=== PATIENT | female | born 1950 | race Caucasian/White ===

== ENCOUNTER 2018-10-03 18:10 | Inpatient (IN) | payer MEDICARE ==
[2018-10-03] MEDS ORDERED: Senokot S 8.6-50 MG TAB PO PRN (20:55)
[2018-10-03] MEDS ORDERED: HYDROcodone/Acetaminophen 10/325 mg Tablet PO PRN (20:55)
[2018-10-03] MEDS ORDERED: Ondansetron ODT 4 MG TAB PO PRN (20:55)
[2018-10-03] MEDS: Aspirin 81 mg Enteric Coated Tablet PO SCH (21:33)
[2018-10-04 01:31] LABS: Bilirubin Negative (Negative); Blood, Urine Large (Negative); Glucose, Urine (Dipstick) Negative (Negative); Leukocyte Negative (Negative); Nitrite Negative (Negative); Protein, Urine (Dipstick) 100 mg/dL (Neg-Trace); Urobilinogen 0.2 mg/dL (Less than 2)
[2018-10-04 01:38] LABS: RBC/HPF 21-50 HPF (0-3)
[2018-10-04 01:39] LABS: Bacteria/HPF 1+ HPF (None Seen); Clarity Hazy (Clear); Squamous Epithelial 0-3 HPF (0-3); WBC/HPF 0-3 HPF (0-3)
[2018-10-04 04:56] LABS: #Basophils 0.1 thou/uL (0.0-0.2); #Eosinphils 0.3 thou/uL (0.0-0.7); #Lymphocytes 1.5 thou/uL (1.20-3.40); #Monocytes 0.7 thou/uL (0.11-0.59); #Neutrophils 2.7 thou/uL (1.40-6.50); %Eosinophils 5.7 % (0.0-10.0); %Lymphocytes 28.1 % (21.0-51.0); %Monocytes 14.1 % (0.0-10.0); %Neutrophils 51.1 % (42.0-75.0); Hemoglobin 7.6 g/dL (12.0-16.0); Mean Corpuscular HGB CONC 32.4 g/dL (32.0-36.0); Mean Corpuscular Hemoglobin 26.8 pg (27.0-31.0); Mean Corpuscular Volume 82.9 fL (78.0-98.0); Mean Platelet Volume 6.7 fL (7.4-10.4); Platelet Count 254 thou/uL (130-400); RBC Distribution Width 16.1 % (11.5-14.5); Red Blood Cell (RBC) Count 2.83 mill/uL (4.20-5.40); White Blood Cell (WBC) Count 5.3 thou/uL (4.8-10.8)
[2018-10-04 05:20] LABS: ALT (SGPT) Less than 7 U/L (8-55); AST (SGOT) 14 U/L (5-34); Alkaline Phosphatase 89 U/L (40-150); Anion Gap 13 mmol/L (10-20); BUN (Urea Nitrogen) 15 mg/dL (9.8-20.1); Bilirubin, Total 0.2 mg/dL (0.2-1.2); CRP (Inflammatory) 4.82 mg/dL (= or < 0.5); Calc. Creatinine Clearance 40 mL/min (70-130); Calcium 7.3 mg/dL (7.8-10.44); Carbon Dioxide 28 mmol/L (23-31); Chloride 101 mmol/L (98-107); Estimated GFR-MDRD 26; Globulin 3.4 g/dL (2.4-3.5); Glucose 116 mg/dL (80-115); Protein, Total 5.4 g/dL (6.0-8.3); Sodium 139 mmol/L (136-145)
[2018-10-04] MEDS: Furosemide 40 MG/4 ML VIAL SLOW IVP SCH ×2 (05:30→14:38)
[2018-10-04] MEDS ORDERED: Potassium Chloride 20 MEQ TAB PO SCH ×3 (09:00→17:00)
[2018-10-04] MEDS: Carvedilol 3.125 MG TAB PO SCH ×2 (09:08→16:19)
[2018-10-04] MEDS: Aspirin 81 mg Enteric Coated Tablet PO SCH ×2 (09:08→20:09)
[2018-10-04] MEDS: Famotidine 20 MG TAB PO SCH (09:08)
[2018-10-04] MEDS: PARoxetine 20 MG TAB PO SCH (09:08)
[2018-10-04] MEDS: Nystatin Powder 15 GM BOT TOP SCH ×2 (09:08→20:09)
[2018-10-04] MEDS: Losartan 25 MG TAB PO SCH (09:08)
[2018-10-04] MEDS ORDERED: cefTRIAXone\\ROCEPHIN 2 GM VIAL IVPB SCH (14:00)
[2018-10-04] MEDS ORDERED: Furosemide 40 MG/4 ML VIAL SLOW IVP SCH (14:30)
[2018-10-04] MEDS: cefTRIAXone\\ROCEPHIN 2 GM VIAL IVPB SCH (16:16)
[2018-10-04] MEDS ORDERED: Potassium Chloride 10 MEQ TAB PO SCH (17:30)
--- NOTE | 2018-10-05 00:43 | HP ---
PRIMARY CARE PHYSICIAN: Out of town. REASON FOR ADMISSION: For long-term IV antibiotic and physical therapy, status post right total hip replacement, status post septic hip arthritis and right total hip revision and resection. HISTORY OF PRESENT ILLNESS: Ms. Annie Neely is a 67-year-old female with a history of hypertension, colon cancer in remission, bilateral hip replacement with infection of the right hip, for which the patient initially had a right total hip replacement done by Dr. Dela Cruz in August 16 2018. She was discharged home in a stable condition, but presented back to the hospital on September 07 due to hip pain and was found to have a right hip infection. Dr. Dela Cruz did an incision and drainage and washout on September 07, and she followed up in the clinic, and Dr. Dela Cruz saw her in the clinic on the and decided to go ahead and readmit her for excisional arthroplasty as she had a persistent fistula that failed to appreciably improve. During hospitalization due to the septic hip, the patient saw ID specialist, Dr. Peters, and she was started on IV antibiotic. The antibiotic of choice initially was Rocephin and rifampin, and culture came out and was positive for MSSA. Due to the septic arthritis and multiple washouts, the patient unfortunately became fluid overloaded and she was diuresed with IV Lasix. She had an echocardiogram, which showed an EF of 45%. The patient progressively improved and initially had shortness of breath, which improved with the IV Lasix. She was placed on O2 and has been stable on 2 L of nasal cannula. Per ID specialist, the decision was made to continue the patient on IV Rocephin for 42 days through November 15 and then start the patient on oral Levaquin for 3 months and cephalexin 500 mg indefinitely after the 3 months of the Levaquin. Due to all the complications, the patient was subsequently transferred to [facility] for skilled rehabilitation. During hospitalization in [place], the patient was also noted to have acute blood loss anemia and she received blood transfusion on September 07 and September 29. She also had acute renal failure and BMP has been monitored closely. Upon evaluation in our hospital today, the patient complains of weakness. States hip pain is controlled with current pain medication. Repeat CBC was done this morning and was noted to be hemoglobin of 7.6 and hematocrit of 23.5. The patient also had a potassium of 3.0. The decision was made to transfuse the patient with 3 units of PRBC. PAST MEDICAL HISTORY: Hypertension, colon cancer in remission, osteoarthrosis, and bilateral hip replacement. PAST SURGICAL HISTORY: Left total hip arthroplasty, right total hip arthroplasty, and colon resection. ALLERGIES: ADHESIVE ALLERGY. NO MEDICATION ALLERGIES. SOCIAL HISTORY: Denies alcohol or tobacco use. Denies illicit drug use. The patient is retired. CODE STATUS: The patient is a full code. MEDICATIONS: 1. Aspirin 81 mg b.i.d. 2. Coreg 3.125 b.i.d. 3. Rocephin 2 g IV piggyback daily until November 15. 4. Vitamin D3 1000 daily. 5. [place] 10/325 p.r.n. pain. 6. Lasix 40 IV b.i.d. x3 doses. 7. Cozaar 50 daily. 8. Paxil 40 daily. 9. Potassium chloride 20 mEq daily. REVIEW OF SYSTEMS: GENERAL: The patient complains of weakness. Denies fever or chills. HEENT: No nosebleed. No dysphagia. No vision changes. CHEST: Denies chest pain, shortness of breath, palpitations or dizziness. RESPIRATORY: Denies cough, shortness of breath or wheezing. ABDOMEN: Denies abdominal pain, nausea, vomiting or diarrhea. GENITOURINARY: Denies dysuria or hematuria. SKIN: Denies rashes or blistering. NEUROLOGICAL: No focal deficits. PSYCHIATRIC: Denies depression or anxiety. MUSCULOSKELETAL: Complains of gait instability. Complains of right hip pain and generalized weakness. PHYSICAL EXAMINATION: VITAL SIGNS: Temperature 98.3, pulse 97, respirations 16, O2 sat 99% on 2 L nasal cannula, and blood pressure 157/72. GENERAL: Alert, awake, oriented x3, lying comfortably in bed, no apparent distress. RESPIRATORY: Clear to auscultation bilaterally. CVS: S1 and S2. No murmurs. ABDOMEN: Positive bowel sounds. Nontender. Nondistended. EXTREMITIES: Right lateral hip and thigh with mod swelling and mild tenderness. Large ecchymosis bruising to site. Large dressing with drainage noted. ASSESSMENT 1. Physical debility. 2. Right septic arthritis. 3. Acute on chronic blood loss anemia. 4. Acute chronic kidney disease. 5. Depression. 6. Electrolyte imbalance. 7. Hypertension. PLAN: The patient is a 67-year-old female, who has been admitted to [facility] for long-term IV antibiotics and skilled rehabilitation and gait strengthening. We will consult PT for strengthening in order to gain modified independence with the gait. We will consult Occupational Therapy to help with activities of daily living. We will monitor for electrolyte abnormalities closely. We will monitor the patient closely for anemia or other signs of acute blood loss. We will transfuse the patient with 3 units reduced platelet PRBC's today. We will weekly monitor CBC, CMP, and CRP. We would discontinue Dinh in 2 days when she completes the IV Lasix. We will switch to Po lasix then and monitor closely. We will place the patient on a strict fluid restriction, daily weight, reduce salt, heart healthy diet. We will place the patient on SCDs for DVT prophylaxis and aspirin b.i.d. We will place the patient on Pepcid b.i.d. for GI prophylaxis. Estimated length of stay is 4 to 6 weeks. DISPOSITION: Home. Job ID: [id number] [facility]
[2018-10-05 01:52] LABS: Hemoglobin 10.4 g/dL (12.0-16.0)
[2018-10-05] MEDS: Furosemide 40 MG/4 ML VIAL SLOW IVP SCH ×2 (05:26→14:32)
[2018-10-05] MEDS ORDERED: Furosemide 40 MG/4 ML VIAL SLOW IVP SCH (06:00)
[2018-10-05 08:06] LABS: Anion Gap 15 mmol/L (10-20); BUN (Urea Nitrogen) 12 mg/dL (9.8-20.1); Calc. Creatinine Clearance 44 mL/min (70-130); Calcium 7.9 mg/dL (7.8-10.44); Carbon Dioxide 27 mmol/L (23-31); Chloride 99 mmol/L (98-107); Estimated GFR-MDRD 31; Glucose 98 mg/dL (80-115); Potassium 3.3 mmol/L (3.5-5.1); Sodium 138 mmol/L (136-145)
[2018-10-05 08:07] LABS: #Basophils 0.1 thou/uL (0.0-0.2); #Eosinphils 0.3 thou/uL (0.0-0.7); #Lymphocytes 1.9 thou/uL (1.20-3.40); #Monocytes 0.7 thou/uL (0.11-0.59); %Basophils 2.1 % (0.0-1.0); %Eosinophils 3.8 % (0.0-10.0); %Lymphocytes 26.5 % (21.0-51.0); %Monocytes 10.2 % (0.0-10.0); %Neutrophils 57.4 % (42.0-75.0); Hemoglobin 11.9 g/dL (12.0-16.0); Mean Corpuscular HGB CONC 32.7 g/dL (32.0-36.0); Mean Corpuscular Hemoglobin 27.4 pg (27.0-31.0); Mean Corpuscular Volume 83.8 fL (78.0-98.0); Mean Platelet Volume 6.9 fL (7.4-10.4); Platelet Count 253 thou/uL (130-400); RBC Distribution Width 14.7 % (11.5-14.5); Red Blood Cell (RBC) Count 4.36 mill/uL (4.20-5.40)
[2018-10-05] MEDS: Famotidine 20 MG TAB PO SCH (08:35)
[2018-10-05] MEDS: PARoxetine 20 MG TAB PO SCH (08:35)
[2018-10-05] MEDS: Potassium Chloride 10 MEQ TAB PO SCH (08:35)
[2018-10-05] MEDS: Losartan 25 MG TAB PO SCH (08:35)
[2018-10-05] MEDS: Carvedilol 3.125 MG TAB PO SCH ×2 (08:35→16:50)
[2018-10-05] MEDS: Aspirin 81 mg Enteric Coated Tablet PO SCH ×2 (08:35→20:08)
[2018-10-05] MEDS: Nystatin Powder 15 GM BOT TOP SCH ×2 (08:36→20:07)
[2018-10-05] MEDS: Triamcinolone 0.1% Cream 15 GM TUBE TOP PRN ×2 (14:46→20:13)
[2018-10-05] MEDS: cefTRIAXone\\ROCEPHIN 2 GM VIAL IVPB SCH (16:50)
[2018-10-05] MEDS: cefTRIAXone\\ROCEPHIN 2 GM in Sodium Chloride 0.9% 100 ML IVPB SCH (17:08)
[2018-10-06 06:45] LABS: Anion Gap 16 mmol/L (10-20); BUN (Urea Nitrogen) 12 mg/dL (9.8-20.1); Calc. Creatinine Clearance 46 mL/min (70-130); Calcium 8.1 mg/dL (7.8-10.44); Carbon Dioxide 30 mmol/L (23-31); Chloride 96 mmol/L (98-107); Estimated GFR-MDRD 33; Glucose 103 mg/dL (80-115); Potassium 3.5 mmol/L (3.5-5.1); Sodium 138 mmol/L (136-145)
[2018-10-06] MEDS: Carvedilol 3.125 MG TAB PO SCH ×2 (08:01→17:45)
[2018-10-06] MEDS: Losartan 25 MG TAB PO SCH (08:01)
[2018-10-06] MEDS: Famotidine 20 MG TAB PO SCH (08:01)
[2018-10-06] MEDS: PARoxetine 20 MG TAB PO SCH (08:01)
[2018-10-06] MEDS: Furosemide 40 MG TAB PO SCH ×2 (08:02→14:14)
[2018-10-06] MEDS: Triamcinolone 0.1% Cream 15 GM TUBE TOP PRN ×2 (08:02→21:29)
[2018-10-06] MEDS: Potassium Chloride 10 MEQ TAB PO SCH (08:02)
[2018-10-06] MEDS: Nystatin Powder 15 GM BOT TOP SCH ×2 (08:02→21:29)
[2018-10-06] MEDS: Aspirin 81 mg Enteric Coated Tablet PO SCH ×2 (08:02→21:30)
[2018-10-06] MEDS: cefTRIAXone\\ROCEPHIN 2 GM in Sodium Chloride 0.9% 100 ML IVPB SCH (17:45)
[2018-10-07] MEDS: Furosemide 40 MG TAB PO SCH ×2 (08:52→14:21)
[2018-10-07] MEDS: Losartan 25 MG TAB PO SCH (08:52)
[2018-10-07] MEDS: Famotidine 20 MG TAB PO SCH (08:52)
[2018-10-07] MEDS: PARoxetine 20 MG TAB PO SCH (08:52)
[2018-10-07] MEDS: Aspirin 81 mg Enteric Coated Tablet PO SCH ×2 (08:53→21:43)
[2018-10-07] MEDS: Carvedilol 3.125 MG TAB PO SCH ×2 (08:53→17:52)
[2018-10-07] MEDS: Nystatin Powder 15 GM BOT TOP SCH ×2 (08:53→21:45)
[2018-10-07] MEDS: Potassium Chloride 10 MEQ TAB PO SCH (08:53)
[2018-10-07] MEDS: cefTRIAXone\\ROCEPHIN 2 GM in Sodium Chloride 0.9% 100 ML IVPB SCH (17:52)
[2018-10-07] MEDS: Triamcinolone 0.1% Cream 15 GM TUBE TOP PRN (21:45)
[2018-10-08] MEDS: PARoxetine 20 MG TAB PO SCH (10:02)
[2018-10-08] MEDS: Famotidine 20 MG TAB PO SCH (10:02)
[2018-10-08] MEDS: Losartan 25 MG TAB PO SCH (10:02)
[2018-10-08] MEDS: Potassium Chloride 10 MEQ TAB PO SCH (10:02)
[2018-10-08] MEDS: Triamcinolone 0.1% Cream 15 GM TUBE TOP PRN ×2 (10:03→21:28)
[2018-10-08] MEDS: Aspirin 81 mg Enteric Coated Tablet PO SCH ×2 (10:03→21:28)
[2018-10-08] MEDS: Furosemide 40 MG TAB PO SCH ×2 (10:03→14:48)
[2018-10-08] MEDS: Nystatin Powder 15 GM BOT TOP SCH ×2 (10:03→21:28)
[2018-10-08] MEDS: Carvedilol 3.125 MG TAB PO SCH ×2 (10:03→16:51)
[2018-10-08] MEDS: cefTRIAXone\\ROCEPHIN 2 GM in Sodium Chloride 0.9% 100 ML IVPB SCH (16:51)
[2018-10-09] MEDS: Acetaminophen 325 MG TAB PO PRN ×3 (02:42→20:45)
[2018-10-09] MEDS: Losartan 25 MG TAB PO SCH (08:12)
[2018-10-09] MEDS: Famotidine 20 MG TAB PO SCH (08:12)
[2018-10-09] MEDS: PARoxetine 20 MG TAB PO SCH (08:12)
[2018-10-09] MEDS: Carvedilol 3.125 MG TAB PO SCH ×2 (08:12→17:02)
[2018-10-09] MEDS: Aspirin 81 mg Enteric Coated Tablet PO SCH ×2 (08:13→20:45)
[2018-10-09] MEDS: Triamcinolone 0.1% Cream 15 GM TUBE TOP PRN ×2 (08:13→20:44)
[2018-10-09] MEDS: Potassium Chloride 10 MEQ TAB PO SCH (08:13)
[2018-10-09] MEDS: Nystatin Powder 15 GM BOT TOP SCH ×2 (08:13→20:45)
[2018-10-09] MEDS: Furosemide 40 MG TAB PO SCH ×2 (08:13→14:31)
[2018-10-09] MEDS: cefTRIAXone\\ROCEPHIN 2 GM in Sodium Chloride 0.9% 100 ML IVPB SCH (17:03)
[2018-10-10] MEDS: HYDROcodone/Acetaminophen 10/325 mg Tablet PO PRN (07:26)
[2018-10-10] MEDS: Potassium Chloride 10 MEQ TAB PO SCH (08:12)
[2018-10-10] MEDS: PARoxetine 20 MG TAB PO SCH (08:13)
[2018-10-10] MEDS: Furosemide 40 MG TAB PO SCH ×2 (08:13→14:37)
[2018-10-10] MEDS: Famotidine 20 MG TAB PO SCH (08:13)
[2018-10-10] MEDS: Losartan 25 MG TAB PO SCH (08:13)
[2018-10-10] MEDS: Aspirin 81 mg Enteric Coated Tablet PO SCH ×2 (08:14→20:47)
[2018-10-10] MEDS: Carvedilol 3.125 MG TAB PO SCH ×2 (08:14→17:17)
[2018-10-10] MEDS: Nystatin Powder 15 GM BOT TOP SCH ×2 (08:14→20:48)
[2018-10-10] MEDS: cefTRIAXone\\ROCEPHIN 2 GM in Sodium Chloride 0.9% 100 ML IVPB SCH (17:18)
[2018-10-11 05:12] LABS: #Basophils 0.2 thou/uL (0.0-0.2); #Eosinphils 0.2 thou/uL (0.0-0.7); #Lymphocytes 3.6 thou/uL (1.20-3.40); #Monocytes 0.9 thou/uL (0.11-0.59); #Neutrophils 3.6 thou/uL (1.40-6.50); %Eosinophils 2.8 % (0.0-10.0); %Monocytes 10.9 % (0.0-10.0); %Neutrophils 42.4 % (42.0-75.0); Hemoglobin 10.8 g/dL (12.0-16.0); Mean Corpuscular HGB CONC 32.1 g/dL (32.0-36.0); Mean Corpuscular Volume 83.9 fL (78.0-98.0); Mean Platelet Volume 7.7 fL (7.4-10.4); Platelet Count 201 thou/uL (130-400); RBC Distribution Width 15.2 % (11.5-14.5); White Blood Cell (WBC) Count 8.5 thou/uL (4.8-10.8)
[2018-10-11 05:21] LABS: ALT (SGPT) Less than 7 U/L (8-55); AST (SGOT) 16 U/L (5-34); Albumin 2.4 g/dL (3.4-4.8); Alkaline Phosphatase 86 U/L (40-150); Anion Gap 14 mmol/L (10-20); BUN (Urea Nitrogen) 17 mg/dL (9.8-20.1); Bilirubin, Total 0.4 mg/dL (0.2-1.2); Calc. Creatinine Clearance 35 mL/min (70-130); Calcium 8.3 mg/dL (7.8-10.44); Carbon Dioxide 33 mmol/L (23-31); Chloride 94 mmol/L (98-107); Estimated GFR-MDRD 24; Globulin 4.2 g/dL (2.4-3.5); Glucose 104 mg/dL (80-115); Potassium 3.3 mmol/L (3.5-5.1); Protein, Total 6.6 g/dL (6.0-8.3); Sodium 138 mmol/L (136-145)
[2018-10-11] MEDS: Famotidine 20 MG TAB PO SCH (08:58)
[2018-10-11] MEDS: PARoxetine 20 MG TAB PO SCH (08:58)
[2018-10-11] MEDS: Furosemide 40 MG TAB PO SCH ×2 (08:58→14:26)
[2018-10-11] MEDS: diphenhydrAMINE 25 MG CAP PO PRN ×2 (08:58→21:33)
[2018-10-11] MEDS: Potassium Chloride 10 MEQ TAB PO SCH (08:58)
[2018-10-11] MEDS: Losartan 25 MG TAB PO SCH (08:58)
[2018-10-11] MEDS: Carvedilol 3.125 MG TAB PO SCH ×2 (08:59→17:21)
[2018-10-11] MEDS: Aspirin 81 mg Enteric Coated Tablet PO SCH ×2 (08:59→21:33)
[2018-10-11] MEDS: Nystatin Powder 15 GM BOT TOP SCH ×2 (08:59→21:33)
[2018-10-11] MEDS: cefTRIAXone\\ROCEPHIN 2 GM in Sodium Chloride 0.9% 100 ML IVPB SCH (17:21)
[2018-10-12] MEDS: HYDROcodone/Acetaminophen 10/325 mg Tablet PO PRN (07:42)
[2018-10-12] MEDS: Furosemide 40 MG TAB PO SCH ×2 (08:07→15:09)
[2018-10-12] MEDS: Famotidine 20 MG TAB PO SCH (08:07)
[2018-10-12] MEDS: Carvedilol 3.125 MG TAB PO SCH ×2 (08:08→17:53)
[2018-10-12] MEDS: PARoxetine 20 MG TAB PO SCH (08:08)
[2018-10-12] MEDS: Potassium Chloride 10 MEQ TAB PO SCH (08:08)
[2018-10-12] MEDS: Losartan 25 MG TAB PO SCH (08:08)
[2018-10-12] MEDS: Aspirin 81 mg Enteric Coated Tablet PO SCH ×2 (08:08→21:25)
[2018-10-12] MEDS: Nystatin Powder 15 GM BOT TOP SCH ×2 (08:09→21:26)
[2018-10-12] MEDS: cefTRIAXone\\ROCEPHIN 2 GM in Sodium Chloride 0.9% 100 ML IVPB SCH (17:53)
[2018-10-13] MEDS: Famotidine 20 MG TAB PO SCH (08:57)
[2018-10-13] MEDS: Carvedilol 3.125 MG TAB PO SCH ×2 (08:57→17:10)
[2018-10-13] MEDS: Aspirin 81 mg Enteric Coated Tablet PO SCH ×2 (08:57→20:43)
[2018-10-13] MEDS: PARoxetine 20 MG TAB PO SCH (08:57)
[2018-10-13] MEDS: Potassium Chloride 10 MEQ TAB PO SCH (08:57)
[2018-10-13] MEDS: Losartan 25 MG TAB PO SCH (08:57)
[2018-10-13] MEDS: Furosemide 40 MG TAB PO SCH ×2 (08:58→15:15)
[2018-10-13] MEDS: Nystatin Powder 15 GM BOT TOP SCH ×2 (08:58→20:43)
[2018-10-13] MEDS: cefTRIAXone\\ROCEPHIN 2 GM in Sodium Chloride 0.9% 100 ML IVPB SCH (17:11)
[2018-10-14] MEDS: Aspirin 81 mg Enteric Coated Tablet PO SCH ×2 (08:42→20:13)
[2018-10-14] MEDS: Potassium Chloride 10 MEQ TAB PO SCH (08:42)
[2018-10-14] MEDS: Furosemide 40 MG TAB PO SCH ×2 (08:42→14:25)
[2018-10-14] MEDS: Famotidine 20 MG TAB PO SCH (08:42)
[2018-10-14] MEDS: PARoxetine 20 MG TAB PO SCH (08:42)
[2018-10-14] MEDS: Losartan 25 MG TAB PO SCH (08:42)
[2018-10-14] MEDS: Carvedilol 3.125 MG TAB PO SCH ×2 (08:43→17:39)
[2018-10-14] MEDS: Nystatin Powder 15 GM BOT TOP SCH ×2 (08:43→19:48)
[2018-10-14] MEDS: HYDROcodone/Acetaminophen 10/325 mg Tablet PO PRN (10:26)
[2018-10-14] MEDS: cefTRIAXone\\ROCEPHIN 2 GM in Sodium Chloride 0.9% 100 ML IVPB SCH (17:39)
[2018-10-15] MEDS: Potassium Chloride 10 MEQ TAB PO SCH (09:33)
[2018-10-15] MEDS: Losartan 25 MG TAB PO SCH (09:33)
[2018-10-15] MEDS: Aspirin 81 mg Enteric Coated Tablet PO SCH ×2 (09:34→20:59)
[2018-10-15] MEDS: Carvedilol 3.125 MG TAB PO SCH ×2 (09:34→17:38)
[2018-10-15] MEDS: Furosemide 40 MG TAB PO SCH ×2 (09:34→14:40)
[2018-10-15] MEDS: PARoxetine 20 MG TAB PO SCH (09:34)
[2018-10-15] MEDS: Famotidine 20 MG TAB PO SCH (09:34)
[2018-10-15] MEDS: Nystatin Powder 15 GM BOT TOP SCH ×2 (09:35→20:59)
[2018-10-15] MEDS: cefTRIAXone\\ROCEPHIN 2 GM in Sodium Chloride 0.9% 100 ML IVPB SCH (17:38)
[2018-10-15] MEDS: Mag-Al Plus 1200 MG/1200 MG/120 MG/30 ML UDCUP PO PRN (21:45)
[2018-10-16] MEDS: Potassium Chloride 10 MEQ TAB PO SCH (08:59)
[2018-10-16] MEDS: Famotidine 20 MG TAB PO SCH (09:00)
[2018-10-16] MEDS: Furosemide 40 MG TAB PO SCH ×2 (09:00→14:32)
[2018-10-16] MEDS: Aspirin 81 mg Enteric Coated Tablet PO SCH ×2 (09:00→20:47)
[2018-10-16] MEDS: Carvedilol 3.125 MG TAB PO SCH ×2 (09:00→17:48)
[2018-10-16] MEDS: PARoxetine 20 MG TAB PO SCH (09:00)
[2018-10-16] MEDS: Losartan 25 MG TAB PO SCH (09:00)
[2018-10-16] MEDS: Nystatin Powder 15 GM BOT TOP SCH ×2 (09:01→20:47)
[2018-10-16] MEDS: Mag-Al Plus 1200 MG/1200 MG/120 MG/30 ML UDCUP PO PRN (17:48)
[2018-10-16] MEDS: cefTRIAXone\\ROCEPHIN 2 GM in Sodium Chloride 0.9% 100 ML IVPB SCH (17:48)
[2018-10-17] MEDS: Losartan 25 MG TAB PO SCH (08:44)
[2018-10-17] MEDS: Furosemide 40 MG TAB PO SCH ×2 (08:44→14:42)
[2018-10-17] MEDS: Famotidine 20 MG TAB PO SCH (08:44)
[2018-10-17] MEDS: PARoxetine 20 MG TAB PO SCH (08:44)
[2018-10-17] MEDS: Carvedilol 3.125 MG TAB PO SCH ×2 (08:44→17:18)
[2018-10-17] MEDS: Aspirin 81 mg Enteric Coated Tablet PO SCH ×2 (08:44→20:58)
[2018-10-17] MEDS: Potassium Chloride 10 MEQ TAB PO SCH (08:44)
[2018-10-17] MEDS: Nystatin Powder 15 GM BOT TOP SCH (08:47)
[2018-10-17] MEDS: cefTRIAXone\\ROCEPHIN 2 GM in Sodium Chloride 0.9% 100 ML IVPB SCH (17:18)
[2018-10-18 05:14] LABS: #Basophils 0.2 thou/uL (0.0-0.2); #Eosinphils 0.4 thou/uL (0.0-0.7); #Lymphocytes 4.5 thou/uL (1.20-3.40); #Monocytes 1.2 thou/uL (0.11-0.59); %Basophils 1.6 % (0.0-1.0); %Monocytes 11.7 % (0.0-10.0); %Neutrophils 38.7 % (42.0-75.0); Hemoglobin 10.7 g/dL (12.0-16.0); Mean Corpuscular HGB CONC 32.3 g/dL (32.0-36.0); Mean Corpuscular Volume 83.5 fL (78.0-98.0); Mean Platelet Volume 7.2 fL (7.4-10.4); Platelet Count 303 thou/uL (130-400); Red Blood Cell (RBC) Count 3.95 mill/uL (4.20-5.40); White Blood Cell (WBC) Count 10.2 thou/uL (4.8-10.8)
[2018-10-18 05:24] LABS: ALT (SGPT) 8 U/L (8-55); AST (SGOT) 16 U/L (5-34); Alkaline Phosphatase 131 U/L (40-150); Anion Gap 17 mmol/L (10-20); BUN (Urea Nitrogen) 23 mg/dL (9.8-20.1); Bilirubin, Total 0.3 mg/dL (0.2-1.2); CRP (Inflammatory) 8.15 mg/dL (= or < 0.5); Calc. Creatinine Clearance 25 mL/min (70-130); Calcium 9.6 mg/dL (7.8-10.44); Carbon Dioxide 28 mmol/L (23-31); Chloride 95 mmol/L (98-107); Estimated GFR-MDRD 17; Glucose 102 mg/dL (80-115); Potassium 4.2 mmol/L (3.5-5.1); Sodium 136 mmol/L (136-145)
[2018-10-18 05:33] LABS: Globulin 5.2 g/dL (2.4-3.5); Protein, Total 8.2 g/dL (6.0-8.3)
[2018-10-18] MEDS: PARoxetine 20 MG TAB PO SCH (08:39)
[2018-10-18] MEDS: Potassium Chloride 10 MEQ TAB PO SCH (08:39)
[2018-10-18] MEDS: Losartan 25 MG TAB PO SCH (08:40)
[2018-10-18] MEDS: Famotidine 20 MG TAB PO SCH (08:40)
[2018-10-18] MEDS: Aspirin 81 mg Enteric Coated Tablet PO SCH ×2 (08:40→21:28)
[2018-10-18] MEDS: Carvedilol 3.125 MG TAB PO SCH ×2 (08:40→17:06)
[2018-10-18] MEDS: Furosemide 40 MG TAB PO SCH ×2 (08:40→14:07)
[2018-10-18] MEDS: cefTRIAXone\\ROCEPHIN 2 GM in Sodium Chloride 0.9% 100 ML IVPB SCH (17:06)
[2018-10-18] MEDS: diphenhydrAMINE 25 MG CAP PO PRN (21:28)
[2018-10-19] MEDS: PARoxetine 20 MG TAB PO SCH (08:25)
[2018-10-19] MEDS: Potassium Chloride 10 MEQ TAB PO SCH (08:25)
[2018-10-19] MEDS: Losartan 25 MG TAB PO SCH (08:26)
[2018-10-19] MEDS: Furosemide 40 MG TAB PO SCH ×2 (08:26→14:12)
[2018-10-19] MEDS: Carvedilol 3.125 MG TAB PO SCH ×2 (08:26→17:13)
[2018-10-19] MEDS: Famotidine 20 MG TAB PO SCH (08:26)
[2018-10-19] MEDS: Aspirin 81 mg Enteric Coated Tablet PO SCH ×2 (08:26→20:25)
[2018-10-19] MEDS: HYDROcodone/Acetaminophen 10/325 mg Tablet PO PRN (14:12)
[2018-10-19] MEDS: cefTRIAXone\\ROCEPHIN 2 GM in Sodium Chloride 0.9% 100 ML IVPB SCH (17:13)
[2018-10-19] MEDS: diphenhydrAMINE 25 MG CAP PO PRN (17:21)
[2018-10-20] MEDS: Aspirin 81 mg Enteric Coated Tablet PO SCH ×2 (08:44→20:29)
[2018-10-20] MEDS: PARoxetine 20 MG TAB PO SCH (08:46)
[2018-10-20] MEDS: Potassium Chloride 10 MEQ TAB PO SCH (08:46)
[2018-10-20] MEDS: Famotidine 20 MG TAB PO SCH (08:47)
[2018-10-20] MEDS: Carvedilol 3.125 MG TAB PO SCH ×2 (08:47→17:28)
[2018-10-20] MEDS: Furosemide 40 MG TAB PO SCH ×2 (08:47→14:32)
[2018-10-20] MEDS: Losartan 25 MG TAB PO SCH (08:47)
[2018-10-20] MEDS: cefTRIAXone\\ROCEPHIN 2 GM in Sodium Chloride 0.9% 100 ML IVPB SCH (17:27)
[2018-10-21] MEDS: Potassium Chloride 10 MEQ TAB PO SCH (08:35)
[2018-10-21] MEDS: Aspirin 81 mg Enteric Coated Tablet PO SCH ×2 (08:36→21:48)
[2018-10-21] MEDS: Losartan 25 MG TAB PO SCH (08:36)
[2018-10-21] MEDS: PARoxetine 20 MG TAB PO SCH (08:36)
[2018-10-21] MEDS: Furosemide 40 MG TAB PO SCH ×2 (08:36→13:33)
[2018-10-21] MEDS: Famotidine 20 MG TAB PO SCH (08:36)
[2018-10-21] MEDS: Carvedilol 3.125 MG TAB PO SCH ×2 (08:36→17:28)
[2018-10-21] MEDS: HYDROcodone/Acetaminophen 10/325 mg Tablet PO PRN (13:33)
[2018-10-21] MEDS: cefTRIAXone\\ROCEPHIN 2 GM in Sodium Chloride 0.9% 100 ML IVPB SCH (17:29)
[2018-10-22] MEDS: Potassium Chloride 10 MEQ TAB PO SCH (09:26)
[2018-10-22] MEDS: Losartan 25 MG TAB PO SCH (09:26)
[2018-10-22] MEDS: Aspirin 81 mg Enteric Coated Tablet PO SCH ×2 (09:27→21:16)
[2018-10-22] MEDS: PARoxetine 20 MG TAB PO SCH (09:27)
[2018-10-22] MEDS: Carvedilol 3.125 MG TAB PO SCH ×2 (09:27→17:40)
[2018-10-22] MEDS: Furosemide 40 MG TAB PO SCH ×2 (09:28→14:04)
[2018-10-22] MEDS: Famotidine 20 MG TAB PO SCH (09:28)
[2018-10-22] MEDS: cefTRIAXone\\ROCEPHIN 2 GM in Sodium Chloride 0.9% 100 ML IVPB SCH (17:40)
[2018-10-23] MEDS: PARoxetine 20 MG TAB PO SCH (08:18)
[2018-10-23] MEDS: Losartan 25 MG TAB PO SCH (08:18)
[2018-10-23] MEDS: Famotidine 20 MG TAB PO SCH (08:18)
[2018-10-23] MEDS: Aspirin 81 mg Enteric Coated Tablet PO SCH ×2 (08:18→20:44)
[2018-10-23] MEDS: Furosemide 40 MG TAB PO SCH ×2 (08:18→15:11)
[2018-10-23] MEDS: Carvedilol 3.125 MG TAB PO SCH ×2 (08:18→17:32)
[2018-10-23] MEDS: Potassium Chloride 10 MEQ TAB PO SCH (08:19)
[2018-10-23] MEDS: cefTRIAXone\\ROCEPHIN 2 GM in Sodium Chloride 0.9% 100 ML IVPB SCH (17:32)
[2018-10-23] MEDS: diphenhydrAMINE 25 MG CAP PO PRN (22:32)
[2018-10-24] MEDS: Potassium Chloride 10 MEQ TAB PO SCH (08:41)
[2018-10-24] MEDS: Aspirin 81 mg Enteric Coated Tablet PO SCH ×2 (08:42→20:29)
[2018-10-24] MEDS: Furosemide 40 MG TAB PO SCH ×2 (08:42→14:30)
[2018-10-24] MEDS: diphenhydrAMINE 25 MG CAP PO PRN ×2 (08:42→20:15)
[2018-10-24] MEDS: PARoxetine 20 MG TAB PO SCH (08:42)
[2018-10-24] MEDS: Losartan 25 MG TAB PO SCH (08:42)
[2018-10-24] MEDS: Carvedilol 3.125 MG TAB PO SCH ×2 (08:42→17:45)
[2018-10-24] MEDS: Famotidine 20 MG TAB PO SCH (08:42)
[2018-10-24] MEDS: cefTRIAXone\\ROCEPHIN 2 GM in Sodium Chloride 0.9% 100 ML IVPB SCH (17:45)
[2018-10-25 05:18] LABS: #Basophils 0.2 thou/uL (0.0-0.2); #Eosinphils 0.4 thou/uL (0.0-0.7); #Lymphocytes 3.5 thou/uL (1.20-3.40); #Monocytes 1.1 thou/uL (0.11-0.59); %Eosinophils 5.3 % (0.0-10.0); %Lymphocytes 42.4 % (21.0-51.0); %Monocytes 13.2 % (0.0-10.0); %Neutrophils 37.1 % (42.0-75.0); Hemoglobin 9.5 g/dL (12.0-16.0); Mean Corpuscular HGB CONC 31.9 g/dL (32.0-36.0); Mean Corpuscular Hemoglobin 26.9 pg (27.0-31.0); Mean Corpuscular Volume 84.3 fL (78.0-98.0); Mean Platelet Volume 6.9 fL (7.4-10.4); Platelet Count 294 thou/uL (130-400); RBC Distribution Width 14.5 % (11.5-14.5); Red Blood Cell (RBC) Count 3.52 mill/uL (4.20-5.40); White Blood Cell (WBC) Count 8.2 thou/uL (4.8-10.8)
[2018-10-25 05:31] LABS: Anion Gap 16 mmol/L (10-20); BUN (Urea Nitrogen) 29 mg/dL (9.8-20.1); CRP (Inflammatory) 4.63 mg/dL (= or < 0.5); Calc. Creatinine Clearance 21 mL/min (70-130); Calcium 9.1 mg/dL (7.8-10.44); Carbon Dioxide 26 mmol/L (23-31); Chloride 99 mmol/L (98-107); Estimated GFR-MDRD 15; Glucose 96 mg/dL (80-115); Potassium 4.6 mmol/L (3.5-5.1); Sodium 136 mmol/L (136-145)
[2018-10-25] MEDS: Potassium Chloride 10 MEQ TAB PO SCH (08:34)
[2018-10-25] MEDS: diphenhydrAMINE 25 MG CAP PO PRN ×2 (08:35→20:50)
[2018-10-25] MEDS: PARoxetine 20 MG TAB PO SCH (08:35)
[2018-10-25] MEDS: Famotidine 20 MG TAB PO SCH (08:35)
[2018-10-25] MEDS: Aspirin 81 mg Enteric Coated Tablet PO SCH ×2 (08:36→20:50)
[2018-10-25] MEDS: Triamcinolone 0.1% Cream 15 GM TUBE TOP PRN ×2 (08:36→14:16)
[2018-10-25] MEDS: Losartan 25 MG TAB PO SCH (08:36)
[2018-10-25] MEDS: Carvedilol 3.125 MG TAB PO SCH ×2 (08:36→17:51)
[2018-10-25] MEDS: Furosemide 40 MG TAB PO SCH (08:36)
[2018-10-25] MEDS: cefTRIAXone\\ROCEPHIN 2 GM in Sodium Chloride 0.9% 100 ML IVPB SCH (17:51)
[2018-10-26] MEDS: PARoxetine 20 MG TAB PO SCH (08:26)
[2018-10-26] MEDS: Aspirin 81 mg Enteric Coated Tablet PO SCH ×2 (08:26→21:31)
[2018-10-26] MEDS: Famotidine 20 MG TAB PO SCH (08:26)
[2018-10-26] MEDS: Potassium Chloride 10 MEQ TAB PO SCH (08:26)
[2018-10-26] MEDS: Losartan 25 MG TAB PO SCH (08:27)
[2018-10-26] MEDS: Carvedilol 3.125 MG TAB PO SCH ×2 (08:27→17:56)
[2018-10-26] MEDS: Triamcinolone 0.1% Cream 15 GM TUBE TOP PRN (08:36)
[2018-10-26] MEDS: diphenhydrAMINE 25 MG CAP PO PRN ×2 (14:35→21:31)
[2018-10-26] MEDS: cefTRIAXone\\ROCEPHIN 2 GM in Sodium Chloride 0.9% 100 ML IVPB SCH (17:59)
[2018-10-27] MEDS: diphenhydrAMINE 25 MG CAP PO PRN (06:30)
[2018-10-27] MEDS: Carvedilol 3.125 MG TAB PO SCH ×2 (08:51→17:16)
[2018-10-27] MEDS: PARoxetine 20 MG TAB PO SCH (08:51)
[2018-10-27] MEDS: Losartan 25 MG TAB PO SCH (08:51)
[2018-10-27] MEDS: Famotidine 20 MG TAB PO SCH (08:51)
[2018-10-27] MEDS: Potassium Chloride 10 MEQ TAB PO SCH (08:51)
[2018-10-27] MEDS: Aspirin 81 mg Enteric Coated Tablet PO SCH ×2 (08:52→22:08)
[2018-10-27] MEDS ORDERED: Lidocaine 3%/Hydrocortisone 0.5% CREAM RC PRN (10:30)
[2018-10-27] MEDS: cefTRIAXone\\ROCEPHIN 2 GM in Sodium Chloride 0.9% 100 ML IVPB SCH (17:16)
[2018-10-28 06:06] LABS: Anion Gap 14 mmol/L (10-20); BUN (Urea Nitrogen) 20 mg/dL (9.8-20.1); Calc. Creatinine Clearance 26 mL/min (70-130); Calcium 9.2 mg/dL (7.8-10.44); Carbon Dioxide 24 mmol/L (23-31); Chloride 103 mmol/L (98-107); Estimated GFR-MDRD 18; Glucose 90 mg/dL (80-115); Potassium 4.5 mmol/L (3.5-5.1); Sodium 136 mmol/L (136-145)
[2018-10-28] MEDS: Potassium Chloride 10 MEQ TAB PO SCH (09:29)
[2018-10-28] MEDS: Carvedilol 3.125 MG TAB PO SCH ×2 (09:29→17:31)
[2018-10-28] MEDS: diphenhydrAMINE 25 MG CAP PO PRN ×2 (09:30→20:19)
[2018-10-28] MEDS: Aspirin 81 mg Enteric Coated Tablet PO SCH ×2 (09:30→20:20)
[2018-10-28] MEDS: Losartan 25 MG TAB PO SCH (09:30)
[2018-10-28] MEDS: Famotidine 20 MG TAB PO SCH (09:30)
[2018-10-28] MEDS: PARoxetine 20 MG TAB PO SCH (09:30)
[2018-10-28] MEDS: Triamcinolone 0.1% Cream 15 GM TUBE TOP PRN (09:39)
[2018-10-28] MEDS: cefTRIAXone\\ROCEPHIN 2 GM in Sodium Chloride 0.9% 100 ML IVPB SCH (17:32)
[2018-10-29] MEDS: Aspirin 81 mg Enteric Coated Tablet PO SCH ×2 (08:51→19:59)
[2018-10-29] MEDS: Carvedilol 3.125 MG TAB PO SCH ×2 (08:51→17:42)
[2018-10-29] MEDS: Famotidine 20 MG TAB PO SCH (08:52)
[2018-10-29] MEDS: Losartan 25 MG TAB PO SCH (08:53)
[2018-10-29] MEDS: PARoxetine 20 MG TAB PO SCH (08:53)
[2018-10-29] MEDS: Potassium Chloride 10 MEQ TAB PO SCH (08:54)
[2018-10-29] MEDS: diphenhydrAMINE 25 MG CAP PO PRN (08:57)
[2018-10-29] MEDS: cefTRIAXone\\ROCEPHIN 2 GM in Sodium Chloride 0.9% 100 ML IVPB SCH (17:42)
[2018-10-30] MEDS: PARoxetine 20 MG TAB PO SCH (08:54)
[2018-10-30] MEDS: Famotidine 20 MG TAB PO SCH (08:54)
[2018-10-30] MEDS: Losartan 25 MG TAB PO SCH (08:54)
[2018-10-30] MEDS: Aspirin 81 mg Enteric Coated Tablet PO SCH ×2 (08:55→20:17)
[2018-10-30] MEDS: Potassium Chloride 10 MEQ TAB PO SCH (08:55)
[2018-10-30] MEDS: Carvedilol 3.125 MG TAB PO SCH ×2 (08:55→17:31)
[2018-10-30] MEDS: cefTRIAXone\\ROCEPHIN 2 GM in Sodium Chloride 0.9% 100 ML IVPB SCH (17:31)
[2018-10-30] MEDS: diphenhydrAMINE 25 MG CAP PO PRN (20:17)
[2018-10-31] MEDS: Carvedilol 3.125 MG TAB PO SCH ×2 (08:41→17:11)
[2018-10-31] MEDS: Potassium Chloride 10 MEQ TAB PO SCH (09:40)
[2018-10-31] MEDS: PARoxetine 20 MG TAB PO SCH (09:40)
[2018-10-31] MEDS: Aspirin 81 mg Enteric Coated Tablet PO SCH ×2 (09:41→20:23)
[2018-10-31] MEDS: Losartan 25 MG TAB PO SCH (09:42)
[2018-10-31] MEDS: Famotidine 20 MG TAB PO SCH (09:42)
[2018-10-31] MEDS: HYDROcodone/Acetaminophen 10/325 mg Tablet PO PRN ×2 (11:49→19:13)
[2018-10-31] MEDS: diphenhydrAMINE 25 MG CAP PO PRN (14:44)
[2018-10-31] MEDS: cefTRIAXone\\ROCEPHIN 2 GM in Sodium Chloride 0.9% 100 ML IVPB SCH (17:11)
[2018-11-01 06:22] LABS: #Basophils 0.1 thou/uL (0.0-0.2); #Eosinphils 0.5 thou/uL (0.0-0.7); #Lymphocytes 2.9 thou/uL (1.20-3.40); #Monocytes 0.6 thou/uL (0.11-0.59); #Neutrophils 2.8 thou/uL (1.40-6.50); %Basophils 1.4 % (0.0-1.0); %Lymphocytes 41.7 % (21.0-51.0); %Monocytes 9.2 % (0.0-10.0); %Neutrophils 40.7 % (42.0-75.0); Hemoglobin 8.9 g/dL (12.0-16.0); Mean Corpuscular HGB CONC 32.4 g/dL (32.0-36.0); Mean Corpuscular Hemoglobin 26.9 pg (27.0-31.0); Mean Corpuscular Volume 83.1 fL (78.0-98.0); Mean Platelet Volume 6.3 fL (7.4-10.4); Platelet Count 259 thou/uL (130-400); RBC Distribution Width 14.6 % (11.5-14.5); Red Blood Cell (RBC) Count 3.33 mill/uL (4.20-5.40); White Blood Cell (WBC) Count 6.8 thou/uL (4.8-10.8)
[2018-11-01 06:38] LABS: Anion Gap 15 mmol/L (10-20); BUN (Urea Nitrogen) 17 mg/dL (9.8-20.1); Calc. Creatinine Clearance 29 mL/min (70-130); Carbon Dioxide 21 mmol/L (23-31); Chloride 105 mmol/L (98-107); Estimated GFR-MDRD 20; Glucose 86 mg/dL (80-115); Potassium 5.2 mmol/L (3.5-5.1); Sodium 136 mmol/L (136-145)
[2018-11-01] MEDS: PARoxetine 20 MG TAB PO SCH (08:45)
[2018-11-01] MEDS: Carvedilol 3.125 MG TAB PO SCH ×2 (08:46→17:31)
[2018-11-01] MEDS: Losartan 25 MG TAB PO SCH (08:46)
[2018-11-01] MEDS: Potassium Chloride 10 MEQ TAB PO SCH (08:46)
[2018-11-01] MEDS: Aspirin 81 mg Enteric Coated Tablet PO SCH ×2 (08:46→20:11)
[2018-11-01] MEDS: Famotidine 20 MG TAB PO SCH (08:46)
[2018-11-01] MEDS: diphenhydrAMINE 25 MG CAP PO PRN (08:49)
[2018-11-01] MEDS ORDERED: Sterile Water Irrigation 250 ML BOT ONE (10:57)
[2018-11-01] MEDS ORDERED: Sodium Chloride Irrig Solution 250 ML BOT ONE (10:57)
[2018-11-01] MEDS: HYDROcodone/Acetaminophen 10/325 mg Tablet PO PRN (13:25)
[2018-11-01] MEDS: cefTRIAXone\\ROCEPHIN 2 GM in Sodium Chloride 0.9% 100 ML IVPB SCH (17:31)
[2018-11-02] MEDS: diphenhydrAMINE 25 MG CAP PO PRN ×2 (08:21→19:26)
[2018-11-02] MEDS: Famotidine 20 MG TAB PO SCH (08:21)
[2018-11-02] MEDS: PARoxetine 20 MG TAB PO SCH (08:21)
[2018-11-02] MEDS: Potassium Chloride 10 MEQ TAB PO SCH (08:22)
[2018-11-02] MEDS: Losartan 25 MG TAB PO SCH (08:22)
[2018-11-02] MEDS: Aspirin 81 mg Enteric Coated Tablet PO SCH ×2 (08:22→20:31)
[2018-11-02] MEDS: Carvedilol 3.125 MG TAB PO SCH ×2 (08:22→17:25)
[2018-11-02] MEDS: HYDROcodone/Acetaminophen 10/325 mg Tablet PO PRN (15:02)
[2018-11-02] MEDS: cefTRIAXone\\ROCEPHIN 2 GM in Sodium Chloride 0.9% 100 ML IVPB SCH (17:25)
[2018-11-03] MEDS: Losartan 25 MG TAB PO SCH (09:11)
[2018-11-03] MEDS: Famotidine 20 MG TAB PO SCH (09:12)
[2018-11-03] MEDS: Potassium Chloride 10 MEQ TAB PO SCH ×2 (09:12→09:16)
[2018-11-03] MEDS: HYDROcodone/Acetaminophen 10/325 mg Tablet PO PRN ×2 (09:12→20:23)
[2018-11-03] MEDS: PARoxetine 20 MG TAB PO SCH (09:12)
[2018-11-03] MEDS: Aspirin 81 mg Enteric Coated Tablet PO SCH ×2 (09:13→20:25)
[2018-11-03] MEDS: Carvedilol 3.125 MG TAB PO SCH ×2 (09:13→17:53)
[2018-11-03] MEDS: cefTRIAXone\\ROCEPHIN 2 GM in Sodium Chloride 0.9% 100 ML IVPB SCH (17:52)
[2018-11-03] MEDS: diphenhydrAMINE 25 MG CAP PO PRN (17:53)
[2018-11-04] MEDS: Acetaminophen 325 MG TAB PO PRN (08:51)
[2018-11-04] MEDS: Losartan 25 MG TAB PO SCH (08:51)
[2018-11-04] MEDS: Carvedilol 3.125 MG TAB PO SCH ×2 (08:51→17:29)
[2018-11-04] MEDS: Aspirin 81 mg Enteric Coated Tablet PO SCH ×2 (08:51→20:06)
[2018-11-04] MEDS: PARoxetine 20 MG TAB PO SCH (08:51)
[2018-11-04] MEDS: Famotidine 20 MG TAB PO SCH (08:51)
[2018-11-04] MEDS: Potassium Chloride 10 MEQ TAB PO SCH (08:52)
[2018-11-04] MEDS: diphenhydrAMINE 25 MG CAP PO PRN ×2 (08:57→20:07)
[2018-11-04] MEDS: cefTRIAXone\\ROCEPHIN 2 GM in Sodium Chloride 0.9% 100 ML IVPB SCH (17:30)
[2018-11-05] MEDS: Famotidine 20 MG TAB PO SCH (08:49)
[2018-11-05] MEDS: Carvedilol 3.125 MG TAB PO SCH ×2 (08:49→17:15)
[2018-11-05] MEDS: Losartan 25 MG TAB PO SCH (08:49)
[2018-11-05] MEDS: Aspirin 81 mg Enteric Coated Tablet PO SCH ×2 (08:49→21:31)
[2018-11-05] MEDS: PARoxetine 20 MG TAB PO SCH (08:50)
--- NOTE | 2018-11-05 15:59 | RAD ---
Chest PA and lateral: HISTORY: PICC line placement verification FINDINGS: The PICC line has been pulled back somewhat when compared to the prior 10/02/2018 study. The tip of it now lies within the left brachiocephalic vein just proximal to the superior vena cava. Minimal increased markings bilaterally with some slight costophrenic angle blunting but definite improvement in the paranasal lungs when compared to the prior study. IMPRESSION: The PICC line has been pulled back but the tip is still within the left brachiocephalic vein and this position should be adequate. If the line is pulled back anymore than this, reexamination with a chest x-ray should be considered. Do not pull the PICC line out.
[2018-11-05] MEDS: cefTRIAXone\\ROCEPHIN 2 GM in Sodium Chloride 0.9% 100 ML IVPB SCH (17:15)
[2018-11-06] MEDS: Carvedilol 3.125 MG TAB PO SCH ×2 (08:37→17:17)
[2018-11-06] MEDS: PARoxetine 20 MG TAB PO SCH (08:38)
[2018-11-06] MEDS: Famotidine 20 MG TAB PO SCH (08:38)
[2018-11-06] MEDS: Aspirin 81 mg Enteric Coated Tablet PO SCH ×2 (08:38→20:58)
[2018-11-06] MEDS: Losartan 25 MG TAB PO SCH (08:38)
[2018-11-06] MEDS: cefTRIAXone\\ROCEPHIN 2 GM in Sodium Chloride 0.9% 100 ML IVPB SCH (17:18)
[2018-11-06] MEDS: diphenhydrAMINE 25 MG CAP PO PRN (20:57)
[2018-11-07] MEDS: PARoxetine 20 MG TAB PO SCH (09:03)
[2018-11-07] MEDS: Famotidine 20 MG TAB PO SCH (09:03)
[2018-11-07] MEDS: Carvedilol 3.125 MG TAB PO SCH ×2 (09:04→17:17)
[2018-11-07] MEDS: Losartan 25 MG TAB PO SCH (09:04)
[2018-11-07] MEDS: Aspirin 81 mg Enteric Coated Tablet PO SCH ×2 (09:04→21:06)
[2018-11-07] MEDS: cefTRIAXone\\ROCEPHIN 2 GM in Sodium Chloride 0.9% 100 ML IVPB SCH (17:18)
[2018-11-07] MEDS: HYDROcodone/Acetaminophen 10/325 mg Tablet PO PRN (21:06)
[2018-11-08] MEDS: Carvedilol 3.125 MG TAB PO SCH ×2 (08:43→16:59)
[2018-11-08] MEDS: Losartan 25 MG TAB PO SCH (08:43)
[2018-11-08] MEDS: PARoxetine 20 MG TAB PO SCH (08:43)
[2018-11-08] MEDS: Aspirin 81 mg Enteric Coated Tablet PO SCH ×2 (08:43→21:17)
[2018-11-08] MEDS: Famotidine 20 MG TAB PO SCH (08:44)
[2018-11-08] MEDS: cefTRIAXone\\ROCEPHIN 2 GM in Sodium Chloride 0.9% 100 ML IVPB SCH (16:59)
[2018-11-08] MEDS: HYDROcodone/Acetaminophen 10/325 mg Tablet PO PRN (21:17)
[2018-11-09] MEDS: PARoxetine 20 MG TAB PO SCH (08:48)
[2018-11-09] MEDS: Carvedilol 3.125 MG TAB PO SCH ×2 (08:49→17:25)
[2018-11-09] MEDS: Aspirin 81 mg Enteric Coated Tablet PO SCH ×2 (08:49→21:20)
[2018-11-09] MEDS: Losartan 25 MG TAB PO SCH (08:49)
[2018-11-09] MEDS: Famotidine 20 MG TAB PO SCH (08:50)
[2018-11-09] MEDS: cefTRIAXone\\ROCEPHIN 2 GM in Sodium Chloride 0.9% 100 ML IVPB SCH (17:25)
[2018-11-09] MEDS: diphenhydrAMINE 25 MG CAP PO PRN (21:20)
[2018-11-10] MEDS: Losartan 25 MG TAB PO SCH (08:39)
[2018-11-10] MEDS: PARoxetine 20 MG TAB PO SCH (08:39)
[2018-11-10] MEDS: Aspirin 81 mg Enteric Coated Tablet PO SCH ×2 (08:39→19:59)
[2018-11-10] MEDS: Famotidine 20 MG TAB PO SCH (08:39)
[2018-11-10] MEDS: Carvedilol 3.125 MG TAB PO SCH ×2 (08:40→17:30)
[2018-11-10] MEDS: cefTRIAXone\\ROCEPHIN 2 GM in Sodium Chloride 0.9% 100 ML IVPB SCH (18:30)
[2018-11-10] MEDS: diphenhydrAMINE 25 MG CAP PO PRN (19:58)
[2018-11-11] MEDS: Famotidine 20 MG TAB PO SCH (08:03)
[2018-11-11] MEDS: PARoxetine 20 MG TAB PO SCH (08:03)
[2018-11-11] MEDS: Carvedilol 3.125 MG TAB PO SCH ×2 (08:04→17:12)
[2018-11-11] MEDS: Aspirin 81 mg Enteric Coated Tablet PO SCH ×2 (08:04→20:15)
[2018-11-11] MEDS: Losartan 25 MG TAB PO SCH (08:04)
[2018-11-11] MEDS: cefTRIAXone\\ROCEPHIN 2 GM in Sodium Chloride 0.9% 100 ML IVPB SCH (17:11)
[2018-11-11] MEDS ORDERED: Ferrous Sulfate 325 MG TAB PO SCH (18:00)
[2018-11-11] MEDS: diphenhydrAMINE 25 MG CAP PO PRN (20:15)
[2018-11-12] MEDS: Ferrous Sulfate 325 MG TAB PO SCH ×2 (09:28→16:58)
[2018-11-12] MEDS: Famotidine 20 MG TAB PO SCH (09:28)
[2018-11-12] MEDS: Carvedilol 3.125 MG TAB PO SCH ×2 (09:28→16:58)
[2018-11-12] MEDS: PARoxetine 20 MG TAB PO SCH (09:29)
[2018-11-12] MEDS: Losartan 25 MG TAB PO SCH (09:29)
[2018-11-12] MEDS: Aspirin 81 mg Enteric Coated Tablet PO SCH ×2 (09:29→20:09)
[2018-11-12] MEDS: cefTRIAXone\\ROCEPHIN 2 GM in Sodium Chloride 0.9% 100 ML IVPB SCH (16:59)
[2018-11-13] MEDS: Aspirin 81 mg Enteric Coated Tablet PO SCH ×2 (08:52→21:01)
[2018-11-13] MEDS: Famotidine 20 MG TAB PO SCH (08:52)
[2018-11-13] MEDS: PARoxetine 20 MG TAB PO SCH (08:52)
[2018-11-13] MEDS: Ferrous Sulfate 325 MG TAB PO SCH ×2 (08:52→16:59)
[2018-11-13] MEDS: Carvedilol 3.125 MG TAB PO SCH ×2 (08:52→16:59)
[2018-11-13] MEDS: Losartan 25 MG TAB PO SCH (08:53)
[2018-11-13] MEDS: cefTRIAXone\\ROCEPHIN 2 GM in Sodium Chloride 0.9% 100 ML IVPB SCH (16:59)
[2018-11-13] MEDS: diphenhydrAMINE 25 MG CAP PO PRN (21:02)
[2018-11-14 05:15] LABS: #Basophils 0.1 thou/uL (0.0-0.2); #Eosinphils 0.5 thou/uL (0.0-0.7); #Lymphocytes 2.7 thou/uL (1.20-3.40); #Monocytes 0.7 thou/uL (0.11-0.59); #Neutrophils 3.1 thou/uL (1.40-6.50); %Basophils 1.2 % (0.0-1.0); %Eosinophils 6.5 % (0.0-10.0); %Lymphocytes 38.4 % (21.0-51.0); %Neutrophils 43.9 % (42.0-75.0); Hemoglobin 8.7 g/dL (12.0-16.0); Mean Corpuscular HGB CONC 32.6 g/dL (32.0-36.0); Mean Corpuscular Hemoglobin 26.7 pg (27.0-31.0); Mean Platelet Volume 6.7 fL (7.4-10.4); Platelet Count 261 thou/uL (130-400); RBC Distribution Width 14.8 % (11.5-14.5); Red Blood Cell (RBC) Count 3.26 mill/uL (4.20-5.40)
[2018-11-14 05:27] LABS: ALT (SGPT) Less than 7 U/L (8-55); AST (SGOT) 8 U/L (5-34); Albumin 2.9 g/dL (3.4-4.8); Alkaline Phosphatase 115 U/L (40-150); Anion Gap 13 mmol/L (10-20); BUN (Urea Nitrogen) 12 mg/dL (9.8-20.1); Bilirubin, Total 0.2 mg/dL (0.2-1.2); CRP (Inflammatory) 3.25 mg/dL (= or < 0.5); Calc. Creatinine Clearance 38 mL/min (70-130); Calcium 8.9 mg/dL (7.8-10.44); Carbon Dioxide 23 mmol/L (23-31); Chloride 105 mmol/L (98-107); Estimated GFR-MDRD 29; Globulin 3.6 g/dL (2.4-3.5); Glucose 98 mg/dL (80-115); Potassium 3.9 mmol/L (3.5-5.1); Protein, Total 6.5 g/dL (6.0-8.3); Sodium 137 mmol/L (136-145)
[2018-11-14] MEDS: Losartan 25 MG TAB PO SCH (08:33)
[2018-11-14] MEDS: Carvedilol 3.125 MG TAB PO SCH ×2 (08:33→17:11)
[2018-11-14] MEDS: PARoxetine 20 MG TAB PO SCH (08:33)
[2018-11-14] MEDS: Ferrous Sulfate 325 MG TAB PO SCH ×2 (08:33→17:11)
[2018-11-14] MEDS: Famotidine 20 MG TAB PO SCH (08:33)
[2018-11-14] MEDS: Aspirin 81 mg Enteric Coated Tablet PO SCH ×2 (08:33→20:11)
[2018-11-14] MEDS: HYDROcodone/Acetaminophen 10/325 mg Tablet PO PRN (09:10)
[2018-11-14 13:55] VITALS: BMI 28.4
[2018-11-14] MEDS: cefTRIAXone\\ROCEPHIN 2 GM in Sodium Chloride 0.9% 100 ML IVPB SCH (17:11)
[2018-11-15 06:47] VITALS: BP 151/67; TEMP 98.1
[2018-11-15] MEDS: Carvedilol 3.125 MG TAB PO SCH (08:25)
[2018-11-15] MEDS: Ferrous Sulfate 325 MG TAB PO SCH (08:25)
[2018-11-15] MEDS: Losartan 25 MG TAB PO SCH (09:25)
[2018-11-15] MEDS: PARoxetine 20 MG TAB PO SCH (09:26)
[2018-11-15] MEDS: Aspirin 81 mg Enteric Coated Tablet PO SCH (09:26)
[2018-11-15] MEDS: Famotidine 20 MG TAB PO SCH (09:29)
[2018-11-15] MEDS: cefTRIAXone\\ROCEPHIN 2 GM in Sodium Chloride 0.9% 100 ML IVPB SCH (13:02)
[2018-11-15] MEDS ORDERED: cefTRIAXone\\ROCEPHIN 2 GM in Sodium Chloride 0.9% 100 ML IVPB SCH (13:15)
--- NOTE | 2018-11-16 04:12 | DIS ---
DATE OF ADMISSION: 10/03/2018 DATE OF DISCHARGE: 11/15/2018 DISCHARGE DISPOSITION: To home. DISCHARGE INSTRUCTIONS: 1. Follow up with primary care physician within 2 weeks. 2. Follow up with Dr. Dela Cruz and Dr. Peters as recommended. 3. Primary care physician to refer to hooker operator as an outpatient. 4. The patient is to have a workup for anemia as an outpatient. DISCHARGE MEDICATIONS: 1. [place] 10/325 one tab b.i.d. p.r.n. pain. 2. Aspirin 81 mg daily. 3. Coreg 3.125 b.i.d. 4. Ferrous sulfate 325 b.i.d. 5. Cozaar 50 daily. 6. Paxil 40 daily. 7. Furosemide 40 p.o. daily p.r.n. shortness of breath or weight gain. 8. Triamcinolone acetonide 0.1 topical b.i.d. p.r.n. for rash. 9. Levaquin 250 p.o. daily x3 months then start Keflex after completion of Levaquin in 3 months. 10. Keflex 500 p.o. daily indefinitely per recommendation of ID specialist, Dr. Peters. BRIEF HOSPITAL COURSE: Ms. Neely is a 67-year-old very pleasant female with a history of hypertension, colon cancer, in remission, bilateral hip replacements. The patient initially had a right total hip replacement, August [address]a Cruz, but she had some complication and was noted to have hip infection and initially Dr. Dela Cruz did incision and drainage and washout on September 07, and she was subsequently admitted again in September 27 and she had an excision arthroplasty which had a persistent fistula. She was seen by ID specialist who recommended long-term IV antibiotic. Culture from the incision was positive for MSSA and the patient was noted to have right septic arthritis. Due to this, she was fluid overloaded and new onset CHF with an EF of 45%. The patient was diuresed with Lasix. She was short of breath and had to have oxygen. She progressively improved and was sent to [place] for skilled rehabilitation. The patient during hospitalization here progressed nicely and we were able to taper off nasal cannula oxygen. She continued IV Lasix just for 3 days and was transitioned to oral Lasix. During hospitalization, hospitalization was complicated by acute on chronic renal failure and the Lasix had to be discontinued. This progressively improved her renal function and she did not need Lasix again for the remainder of the hospitalization. The patient had erythema to the lateral right hip incision site and also to her PICC line and this was noted to be due to allergy to adhesives. Adhesive were discontinued and the erythema and irritation progressively improved. During hospitalization, she also had episodes of anemia and had to be transfused with 3 units of packed red blood cells and this progressively improved. The patient had weekly labs and CRP slowly trended down. The patient was able to follow up with orthopedic surgeon, Dr. Dela Cruz who was happy with her progress and she also followed up with ID specialist Dr. Peters who recommended completion of IV antibiotics, November 15, and starting oral Levaquin for 3 months and then transitioned to 500 mg Keflex indefinitely. The patient completed a 42-day Rocephin IV, November 15, and was subsequently discharged home in a stable condition. During hospitalization, she participated in physical therapy and by day of discharge, she was able to ambulate about 300 feet with a rolling walker. With physical therapy, the patient demonstrated independence with home exercises with very minimal pain. The patient was discharged to home with family in a stable condition. Vital signs upon discharge, temperature 98.1, pulse 87, respirations 22, O2 saturation 98% on room air. Blood pressure 151/67. Job ID: [id number]
== END 2018-11-15 14:45 | disposition home or self-care (01) | DRG 949 ==
LOC: MADMS 18:10
PROVIDERS: ADMIT Family Medicine; ATTEND Family Medicine
DX: T84.51XD Infection and inflammatory reaction due to internal right hip prosthesis, subsequent encounter (principal); N17.9 Acute kidney failure, unspecified; R53.81 Other malaise; R26.89 Other abnormalities of gait and mobility; F32.9 Major depressive disorder, single episode, unspecified; I12.9 Hypertensive chronic kidney disease with stage 1 through stage 4 chronic kidney disease, or unspecified chronic kidney disease; N18.9 Chronic kidney disease, unspecified; Z96.643 Presence of artificial hip joint, bilateral; D64.9 Anemia, unspecified; B95.61 Methicillin susceptible Staphylococcus aureus infection as the cause of diseases classified elsewhere; Z90.49 Acquired absence of other specified parts of digestive tract; Z79.82 Long term (current) use of aspirin; Z85.038 Personal history of other malignant neoplasm of large intestine; Z91.048 Other nonmedicinal substance allergy status
CPT/HCPCS: 36415; 36430; 71046; 80048; 80053; 81001; 85025; 86140; 86850; 86900; 86901; 86922; 87070; 87205; J0696; J1940; J3490; P9016; Q0162; Q0163

== ENCOUNTER 2022-05-06 13:35 | Inpatient (IN) | payer MEDICARE ==
[2022-05-06] MEDS ORDERED: FLU VACC QS2022-23(65YR UP)/PF 240 MCG/0.7 ML SYRINGE IM ONE (15:00)
[2022-05-06] MEDS ORDERED: HYDROcodone/Acetaminophen 10/325 mg Tablet PO PRN (17:27)
[2022-05-06] MEDS ORDERED: HYDROcodone/Acetaminophen 7.5/325 mg Tablet PO PRN (17:27)
[2022-05-06] MEDS ORDERED: cefTRIAXone (ROCEPHIN) 2 GM VIAL IVPB SCH (17:30)
[2022-05-06] MEDS: Aspirin 81 mg Enteric Coated Tablet PO SCH (20:31)
[2022-05-07] MEDS: Amlodipine 5 MG TAB PO SCH (08:11)
[2022-05-07] MEDS: Aspirin 81 mg Enteric Coated Tablet PO SCH ×2 (08:11→21:03)
[2022-05-07] MEDS: Ferrous Sulfate 325 MG TAB PO SCH ×2 (08:11→17:15)
[2022-05-07] MEDS: cefTRIAXone\\ROCEPHIN 2 GM in Sodium Chloride 0.9% 100 ML IVPB SCH (11:03)
[2022-05-08] MEDS ORDERED: Polyethylene Glycol 3350 17 GM Packet PO SCH (09:00)
[2022-05-08] MEDS: Aspirin 81 mg Enteric Coated Tablet PO SCH ×2 (09:29→22:15)
[2022-05-08] MEDS: Ferrous Sulfate 325 MG TAB PO SCH ×2 (09:29→16:48)
[2022-05-08] MEDS: Amlodipine 5 MG TAB PO SCH (09:29)
[2022-05-08] MEDS: Senokot S 8.6-50 MG TAB PO PRN ×2 (09:35→22:14)
[2022-05-08] MEDS ORDERED: Saccharomyces boulardii 250 MG CAP PO SCH (11:15)
[2022-05-08] MEDS: cefTRIAXone\\ROCEPHIN 2 GM in Sodium Chloride 0.9% 100 ML IVPB SCH (12:26)
[2022-05-09] MEDS: Saccharomyces boulardii 250 MG CAP PO SCH (08:20)
[2022-05-09] MEDS: Aspirin 81 mg Enteric Coated Tablet PO SCH ×2 (08:20→20:57)
[2022-05-09] MEDS: Amlodipine 5 MG TAB PO SCH (08:20)
[2022-05-09] MEDS: Ferrous Sulfate 325 MG TAB PO SCH ×2 (08:20→17:11)
[2022-05-09] MEDS: cefTRIAXone\\ROCEPHIN 2 GM in Sodium Chloride 0.9% 100 ML IVPB SCH (10:34)
[2022-05-09] MEDS: Senokot S 8.6-50 MG TAB PO PRN (20:57)
[2022-05-10] MEDS: Saccharomyces boulardii 250 MG CAP PO SCH (09:16)
[2022-05-10] MEDS: Aspirin 81 mg Enteric Coated Tablet PO SCH ×2 (09:16→20:38)
[2022-05-10] MEDS: Amlodipine 5 MG TAB PO SCH (09:16)
[2022-05-10] MEDS: Ferrous Sulfate 325 MG TAB PO SCH ×2 (09:17→17:04)
[2022-05-10] MEDS: cefTRIAXone\\ROCEPHIN 2 GM in Sodium Chloride 0.9% 100 ML IVPB SCH (11:13)
[2022-05-11] MEDS: Amlodipine 5 MG TAB PO SCH (08:00)
[2022-05-11] MEDS: Ferrous Sulfate 325 MG TAB PO SCH ×2 (08:00→17:10)
[2022-05-11] MEDS: Aspirin 81 mg Enteric Coated Tablet PO SCH ×2 (08:01→20:57)
[2022-05-11] MEDS: Saccharomyces boulardii 250 MG CAP PO SCH (08:01)
[2022-05-11] MEDS: cefTRIAXone\\ROCEPHIN 2 GM in Sodium Chloride 0.9% 100 ML IVPB SCH (11:01)
[2022-05-11] MEDS ORDERED: Acetaminophen 325 MG TAB PO PRN (16:16)
[2022-05-11] MEDS: Senokot S 8.6-50 MG TAB PO PRN (20:57)
[2022-05-12] MEDS: Aspirin 81 mg Enteric Coated Tablet PO SCH ×2 (08:17→21:00)
[2022-05-12] MEDS: Amlodipine 5 MG TAB PO SCH (08:17)
[2022-05-12] MEDS: Ferrous Sulfate 325 MG TAB PO SCH ×2 (08:17→17:09)
[2022-05-12] MEDS: Saccharomyces boulardii 250 MG CAP PO SCH (08:17)
[2022-05-12] MEDS: cefTRIAXone\\ROCEPHIN 2 GM in Sodium Chloride 0.9% 100 ML IVPB SCH (12:04)
[2022-05-12] MEDS: Senokot S 8.6-50 MG TAB PO PRN (21:00)
[2022-05-13] MEDS: Ferrous Sulfate 325 MG TAB PO SCH ×2 (08:06→17:17)
[2022-05-13] MEDS: Amlodipine 5 MG TAB PO SCH (08:06)
[2022-05-13] MEDS: Saccharomyces boulardii 250 MG CAP PO SCH (08:06)
[2022-05-13] MEDS: Aspirin 81 mg Enteric Coated Tablet PO SCH ×2 (08:06→21:41)
[2022-05-13] MEDS: Nystatin Cream 15 GM TUBE TOP SCH ×2 (08:07→21:41)
[2022-05-13] MEDS: cefTRIAXone\\ROCEPHIN 2 GM in Sodium Chloride 0.9% 100 ML IVPB SCH (11:55)
[2022-05-13] MEDS: Cyclobenzaprine 10 MG TAB PO PRN (21:41)
[2022-05-14 07:11] LABS: #Basophils 0.1 thou/uL (0.0-0.2); #Eosinphils 0.3 thou/uL (0.0-0.7); #Monocytes 0.7 thou/uL (0.11-0.59); #Neutrophils 4.5 thou/uL (1.40-6.50); %Basophils 1.5 % (0.0-1.0); %Eosinophils 4.5 % (0.0-10.0); %Lymphocytes 14.8 % (21.0-51.0); %Monocytes 10.9 % (0.0-10.0); %Neutrophils 68.2 % (42.0-75.0); Hemoglobin 7.7 g/dL (12.0-16.0); Mean Corpuscular HGB CONC 32.3 g/dL (32.0-36.0); Mean Corpuscular Hemoglobin 27.1 pg (27.0-31.0); Mean Platelet Volume 6.8 fL (7.4-10.4); Platelet Count 244 10x3/uL (130-400); Red Blood Cell (RBC) Count 2.85 mill/uL (4.20-5.40); White Blood Cell (WBC) Count 6.6 10x3/uL (4.8-10.8)
[2022-05-14] MEDS: Aspirin 81 mg Enteric Coated Tablet PO SCH ×2 (08:00→20:43)
[2022-05-14] MEDS: Ferrous Sulfate 325 MG TAB PO SCH ×2 (08:00→16:51)
[2022-05-14] MEDS: Saccharomyces boulardii 250 MG CAP PO SCH (08:01)
[2022-05-14] MEDS: Amlodipine 5 MG TAB PO SCH (08:01)
[2022-05-14] MEDS: Nystatin Cream 15 GM TUBE TOP SCH ×2 (08:01→20:43)
[2022-05-14] MEDS: cefTRIAXone\\ROCEPHIN 2 GM in Sodium Chloride 0.9% 100 ML IVPB SCH (10:50)
[2022-05-15 05:35] LABS: #Basophils 0.1 thou/uL (0.0-0.2); #Eosinphils 0.3 thou/uL (0.0-0.7); #Lymphocytes 1.3 thou/uL (1.20-3.40); #Monocytes 0.6 thou/uL (0.11-0.59); #Neutrophils 4.1 thou/uL (1.40-6.50); %Basophils 2.2 % (0.0-1.0); %Eosinophils 4.7 % (0.0-10.0); %Lymphocytes 19.9 % (21.0-51.0); %Monocytes 9.1 % (0.0-10.0); %Neutrophils 64.1 % (42.0-75.0); Hemoglobin 7.1 g/dL (12.0-16.0); Mean Corpuscular HGB CONC 32.3 g/dL (32.0-36.0); Mean Corpuscular Hemoglobin 27.2 pg (27.0-31.0); Mean Corpuscular Volume 84.2 fl (78.0-98.0); Mean Platelet Volume 7.2 fL (7.4-10.4); Platelet Count 239 10x3/uL (130-400); RBC Distribution Width 14.9 % (11.5-14.5); Red Blood Cell (RBC) Count 2.63 mill/uL (4.20-5.40); White Blood Cell (WBC) Count 6.3 10x3/uL (4.8-10.8)
[2022-05-15 05:44] LABS: Anion Gap 11 mmol/L (10-20); BUN (Urea Nitrogen) 28 mg/dL (9.8-20.1); Calc. Creatinine Clearance 31 mL/min (70-130); Calcium 8.3 mg/dL (7.8-10.44); Carbon Dioxide 21 mmol/L (23-31); Chloride 109 mmol/L (98-107); Estimated GFR 21; Glucose 102 mg/dL (83-110); Potassium 4.1 mmol/L (3.5-5.1); Sodium 137 mmol/L (136-145)
[2022-05-15] MEDS: Amlodipine 5 MG TAB PO SCH (08:42)
[2022-05-15] MEDS: Ferrous Sulfate 325 MG TAB PO SCH ×2 (08:42→17:19)
[2022-05-15] MEDS: Saccharomyces boulardii 250 MG CAP PO SCH (08:45)
[2022-05-15] MEDS: Aspirin 81 mg Enteric Coated Tablet PO SCH ×2 (08:45→20:19)
[2022-05-15] MEDS: Nystatin Cream 15 GM TUBE TOP SCH ×2 (08:45→20:20)
[2022-05-15] MEDS: cefTRIAXone\\ROCEPHIN 2 GM in Sodium Chloride 0.9% 100 ML IVPB SCH (11:38)
[2022-05-16 05:08] LABS: Hemoglobin 7.1 g/dL (12.0-16.0); Mean Corpuscular HGB CONC 33.7 g/dL (32.0-36.0); Mean Corpuscular Hemoglobin 27.7 pg (27.0-31.0); Mean Corpuscular Volume 82.2 fl (78.0-98.0); Platelet Count 217 10x3/uL (130-400); RBC Distribution Width 14.7 % (11.5-14.5); Red Blood Cell (RBC) Count 2.58 mill/uL (4.20-5.40); White Blood Cell (WBC) Count 6.1 10x3/uL (4.8-10.8)
[2022-05-16] MEDS: Ferrous Sulfate 325 MG TAB PO SCH ×2 (08:14→17:17)
[2022-05-16] MEDS: Saccharomyces boulardii 250 MG CAP PO SCH (08:15)
[2022-05-16] MEDS: Aspirin 81 mg Enteric Coated Tablet PO SCH ×2 (08:15→20:04)
[2022-05-16] MEDS: Nystatin Cream 15 GM TUBE TOP SCH ×2 (08:15→20:06)
[2022-05-16] MEDS: Amlodipine 5 MG TAB PO SCH (08:15)
[2022-05-16] MEDS: cefTRIAXone\\ROCEPHIN 2 GM in Sodium Chloride 0.9% 100 ML IVPB SCH (10:21)
[2022-05-17] MEDS: Ferrous Sulfate 325 MG TAB PO SCH ×2 (08:25→17:10)
[2022-05-17] MEDS: Aspirin 81 mg Enteric Coated Tablet PO SCH ×2 (08:26→20:21)
[2022-05-17] MEDS: Amlodipine 5 MG TAB PO SCH (08:26)
[2022-05-17] MEDS: Nystatin Cream 15 GM TUBE TOP SCH ×2 (08:26→20:24)
[2022-05-17] MEDS: Saccharomyces boulardii 250 MG CAP PO SCH (08:26)
[2022-05-17] MEDS: cefTRIAXone\\ROCEPHIN 2 GM in Sodium Chloride 0.9% 100 ML IVPB SCH (10:37)
[2022-05-18 05:22] LABS: #Basophils 0.1 thou/uL (0.0-0.2); #Eosinphils 0.5 thou/uL (0.0-0.7); #Lymphocytes 1.6 thou/uL (1.20-3.40); #Monocytes 0.8 thou/uL (0.11-0.59); #Neutrophils 4.5 thou/uL (1.40-6.50); %Eosinophils 6.2 % (0.0-10.0); %Lymphocytes 21.2 % (21.0-51.0); %Monocytes 10.3 % (0.0-10.0); %Neutrophils 61.3 % (42.0-75.0); Hemoglobin 7.7 g/dL (12.0-16.0); Mean Corpuscular HGB CONC 34.1 g/dL (32.0-36.0); Mean Corpuscular Hemoglobin 28.2 pg (27.0-31.0); Mean Corpuscular Volume 82.6 fl (78.0-98.0); Mean Platelet Volume 7.2 fL (7.4-10.4); Platelet Count 247 10x3/uL (130-400); RBC Distribution Width 15.2 % (11.5-14.5); Red Blood Cell (RBC) Count 2.72 mill/uL (4.20-5.40); White Blood Cell (WBC) Count 7.4 10x3/uL (4.8-10.8)
[2022-05-18 05:43] LABS: Anion Gap 9 mmol/L (10-20); BUN (Urea Nitrogen) 23 mg/dL (9.8-20.1); Calc. Creatinine Clearance 29 mL/min (70-130); Calcium 8.7 mg/dL (7.8-10.44); Carbon Dioxide 22 mmol/L (23-31); Chloride 109 mmol/L (98-107); Estimated GFR 20; Glucose 109 mg/dL (83-110); Potassium 3.9 mmol/L (3.5-5.1); Sodium 136 mmol/L (136-145)
[2022-05-18] MEDS: Ferrous Sulfate 325 MG TAB PO SCH ×2 (08:10→17:11)
[2022-05-18] MEDS: Amlodipine 5 MG TAB PO SCH (08:10)
[2022-05-18] MEDS: Aspirin 81 mg Enteric Coated Tablet PO SCH ×2 (08:11→20:51)
[2022-05-18] MEDS: Nystatin Cream 15 GM TUBE TOP SCH ×2 (08:11→20:55)
[2022-05-18] MEDS: Saccharomyces boulardii 250 MG CAP PO SCH (08:11)
[2022-05-18] MEDS: cefTRIAXone\\ROCEPHIN 2 GM in Sodium Chloride 0.9% 100 ML IVPB SCH (11:27)
[2022-05-19] MEDS: Nystatin Cream 15 GM TUBE TOP SCH ×2 (08:11→21:19)
[2022-05-19] MEDS: Aspirin 81 mg Enteric Coated Tablet PO SCH (08:11)
[2022-05-19] MEDS: Saccharomyces boulardii 250 MG CAP PO SCH (08:11)
[2022-05-19] MEDS: Ferrous Sulfate 325 MG TAB PO SCH ×2 (08:11→17:10)
[2022-05-19] MEDS: Amlodipine 5 MG TAB PO SCH (08:11)
[2022-05-19] MEDS: cefTRIAXone\\ROCEPHIN 2 GM in Sodium Chloride 0.9% 100 ML IVPB SCH (11:17)
[2022-05-20] MEDS: Amlodipine 5 MG TAB PO SCH (08:19)
[2022-05-20] MEDS: Nystatin Cream 15 GM TUBE TOP SCH ×2 (08:20→21:01)
[2022-05-20] MEDS: Ferrous Sulfate 325 MG TAB PO SCH ×2 (08:20→17:25)
[2022-05-20] MEDS: Saccharomyces boulardii 250 MG CAP PO SCH (08:20)
[2022-05-20 09:17] LABS: #Basophils 0.1 thou/uL (0.0-0.2); #Eosinphils 0.7 thou/uL (0.0-0.7); #Lymphocytes 1.6 thou/uL (1.20-3.40); #Monocytes 0.7 thou/uL (0.11-0.59); #Neutrophils 4.8 thou/uL (1.40-6.50); %Lymphocytes 20.4 % (21.0-51.0); %Monocytes 8.9 % (0.0-10.0); %Neutrophils 60.7 % (42.0-75.0); Hemoglobin 8.4 g/dL (12.0-16.0); Mean Corpuscular HGB CONC 32.2 g/dL (32.0-36.0); Mean Corpuscular Hemoglobin 27.2 pg (27.0-31.0); Mean Corpuscular Volume 84.5 fl (78.0-98.0); Mean Platelet Volume 6.7 fL (7.4-10.4); Platelet Count 275 10x3/uL (130-400); RBC Distribution Width 16.5 % (11.5-14.5); Red Blood Cell (RBC) Count 3.08 mill/uL (4.20-5.40); White Blood Cell (WBC) Count 7.8 10x3/uL (4.8-10.8)
[2022-05-20 09:38] LABS: Anion Gap 12 mmol/L (10-20); BUN (Urea Nitrogen) 25 mg/dL (9.8-20.1); Calc. Creatinine Clearance 24 mL/min (70-130); Carbon Dioxide 19 mmol/L (23-31); Chloride 110 mmol/L (98-107); Estimated GFR 16; Glucose 148 mg/dL (83-110); Potassium 4.1 mmol/L (3.5-5.1); Sodium 137 mmol/L (136-145)
[2022-05-20] MEDS: cefTRIAXone\\ROCEPHIN 2 GM in Sodium Chloride 0.9% 100 ML IVPB SCH (11:07)
[2022-05-20] MEDS: Sodium Chloride 0.9% 1,000 ML IV SCH (17:25)
[2022-05-21] MEDS: Sodium Chloride 0.9% 1,000 ML IV SCH ×2 (02:38→13:00)
[2022-05-21 05:26] LABS: Anion Gap 8 mmol/L (10-20); BUN (Urea Nitrogen) 23 mg/dL (9.8-20.1); Calc. Creatinine Clearance 25 mL/min (70-130); Calcium 8.3 mg/dL (7.8-10.44); Carbon Dioxide 20 mmol/L (23-31); Chloride 114 mmol/L (98-107); Estimated GFR 16; Glucose 106 mg/dL (83-110); Potassium 3.9 mmol/L (3.5-5.1); Sodium 138 mmol/L (136-145)
[2022-05-21] MEDS: Amlodipine 5 MG TAB PO SCH (08:12)
[2022-05-21] MEDS: Nystatin Cream 15 GM TUBE TOP SCH ×2 (08:13→21:35)
[2022-05-21] MEDS: Cyclobenzaprine 10 MG TAB PO PRN ×2 (08:13→21:35)
[2022-05-21] MEDS: Ferrous Sulfate 325 MG TAB PO SCH ×2 (08:13→17:07)
[2022-05-21] MEDS: Saccharomyces boulardii 250 MG CAP PO SCH (08:13)
[2022-05-21] MEDS: cefTRIAXone\\ROCEPHIN 2 GM in Sodium Chloride 0.9% 100 ML IVPB SCH (10:54)
[2022-05-22] MEDS: Sodium Chloride 0.9% 1,000 ML IV SCH ×2 (00:13→08:04)
[2022-05-22 06:20] LABS: Anion Gap 8 mmol/L (10-20); BUN (Urea Nitrogen) 24 mg/dL (9.8-20.1); Calc. Creatinine Clearance 23 mL/min (70-130); Calcium 8.1 mg/dL (7.8-10.44); Carbon Dioxide 19 mmol/L (23-31); Chloride 117 mmol/L (98-107); Estimated GFR 15; Glucose 100 mg/dL (83-110); Potassium 3.9 mmol/L (3.5-5.1); Sodium 140 mmol/L (136-145)
[2022-05-22 06:32] LABS: #Basophils 0.1 thou/uL (0.0-0.2); #Eosinphils 0.5 thou/uL (0.0-0.7); #Lymphocytes 1.5 thou/uL (1.20-3.40); #Monocytes 0.6 thou/uL (0.11-0.59); #Neutrophils 3.3 thou/uL (1.40-6.50); %Eosinophils 8.5 % (0.0-10.0); %Lymphocytes 24.8 % (21.0-51.0); %Monocytes 9.4 % (0.0-10.0); %Neutrophils 56.3 % (42.0-75.0); Hemoglobin 6.9 g/dL (12.0-16.0); Mean Corpuscular HGB CONC 32.6 g/dL (32.0-36.0); Mean Corpuscular Hemoglobin 27.8 pg (27.0-31.0); Mean Platelet Volume 6.8 fL (7.4-10.4); Platelet Count 231 10x3/uL (130-400); RBC Distribution Width 16.2 % (11.5-14.5); Red Blood Cell (RBC) Count 2.49 mill/uL (4.20-5.40); White Blood Cell (WBC) Count 5.9 10x3/uL (4.8-10.8)
[2022-05-22] MEDS: Ferrous Sulfate 325 MG TAB PO SCH ×2 (08:02→17:38)
[2022-05-22] MEDS: Amlodipine 5 MG TAB PO SCH (08:03)
[2022-05-22] MEDS: Saccharomyces boulardii 250 MG CAP PO SCH (08:03)
[2022-05-22] MEDS: Nystatin Cream 15 GM TUBE TOP SCH ×2 (08:05→22:10)
[2022-05-22] MEDS: cefTRIAXone\\ROCEPHIN 2 GM in Sodium Chloride 0.9% 100 ML IVPB SCH (10:09)
[2022-05-23 07:28] LABS: #Eosinphils 0.7 thou/uL (0.0-0.7); #Lymphocytes 1.5 thou/uL (1.20-3.40); #Monocytes 0.6 thou/uL (0.11-0.59); #Neutrophils 3.8 thou/uL (1.40-6.50); %Basophils 0.6 % (0.0-1.0); %Eosinophils 9.9 % (0.0-10.0); %Lymphocytes 22.9 % (21.0-51.0); %Monocytes 9.4 % (0.0-10.0); %Neutrophils 57.3 % (42.0-75.0); Hemoglobin 8.6 g/dL (12.0-16.0); Mean Corpuscular Volume 85.3 fl (78.0-98.0); Mean Platelet Volume 6.7 fL (7.4-10.4); Platelet Count 219 10x3/uL (130-400); Red Blood Cell (RBC) Count 2.96 mill/uL (4.20-5.40); White Blood Cell (WBC) Count 6.6 10x3/uL (4.8-10.8)
[2022-05-23 07:46] LABS: Anion Gap 9 mmol/L (10-20); BUN (Urea Nitrogen) 22 mg/dL (9.8-20.1); Calc. Creatinine Clearance 25 mL/min (70-130); Calcium 8.4 mg/dL (7.8-10.44); Carbon Dioxide 19 mmol/L (23-31); Chloride 117 mmol/L (98-107); Estimated GFR 17; Glucose 103 mg/dL (83-110); Potassium 3.7 mmol/L (3.5-5.1); Sodium 141 mmol/L (136-145)
[2022-05-23] MEDS: Ferrous Sulfate 325 MG TAB PO SCH ×2 (09:48→16:55)
[2022-05-23] MEDS: Amlodipine 5 MG TAB PO SCH (09:48)
[2022-05-23] MEDS: Saccharomyces boulardii 250 MG CAP PO SCH (09:48)
[2022-05-23] MEDS: Nystatin Cream 15 GM TUBE TOP SCH ×2 (09:50→21:50)
[2022-05-23 17:09] LABS: Hemoglobin 10.3 g/dL (12.0-16.0)
[2022-05-24] MEDS: Amlodipine 5 MG TAB PO SCH (08:12)
[2022-05-24] MEDS: Ferrous Sulfate 325 MG TAB PO SCH ×2 (08:12→16:58)
[2022-05-24] MEDS: Saccharomyces boulardii 250 MG CAP PO SCH (08:12)
[2022-05-24] MEDS: Nystatin Cream 15 GM TUBE TOP SCH ×2 (08:13→21:20)
[2022-05-24] MEDS: hydrOXYzine 25 MG TAB PO PRN (21:17)
[2022-05-25] MEDS: Saccharomyces boulardii 250 MG CAP PO SCH (08:07)
[2022-05-25] MEDS: Nystatin Cream 15 GM TUBE TOP SCH ×2 (08:07→20:18)
[2022-05-25] MEDS: Amlodipine 5 MG TAB PO SCH (08:07)
[2022-05-25] MEDS: Ferrous Sulfate 325 MG TAB PO SCH ×2 (08:07→17:10)
[2022-05-25] MEDS ORDERED: Acetaminophen 325 MG TAB PO PRN (09:54)
[2022-05-25] MEDS: hydrOXYzine 25 MG TAB PO PRN (14:03)
[2022-05-26] MEDS: hydrOXYzine 25 MG TAB PO PRN ×2 (04:31→16:09)
[2022-05-26] MEDS: Ferrous Sulfate 325 MG TAB PO SCH ×2 (08:11→16:09)
[2022-05-26] MEDS: Amlodipine 5 MG TAB PO SCH (08:11)
[2022-05-26] MEDS: Saccharomyces boulardii 250 MG CAP PO SCH (08:11)
[2022-05-26] MEDS: Nystatin Cream 15 GM TUBE TOP SCH ×2 (08:11→20:52)
[2022-05-27] MEDS: Ferrous Sulfate 325 MG TAB PO SCH ×2 (09:11→18:12)
[2022-05-27] MEDS: Amlodipine 5 MG TAB PO SCH (09:11)
[2022-05-27] MEDS: Saccharomyces boulardii 250 MG CAP PO SCH (09:11)
[2022-05-27] MEDS: Nystatin Cream 15 GM TUBE TOP SCH ×2 (09:12→21:00)
[2022-05-27] MEDS: hydrOXYzine 25 MG TAB PO PRN (15:47)
[2022-05-28] MEDS: Cyclobenzaprine 10 MG TAB PO PRN ×2 (09:05→19:34)
[2022-05-28] MEDS: Ferrous Sulfate 325 MG TAB PO SCH ×2 (09:05→17:28)
[2022-05-28] MEDS: Saccharomyces boulardii 250 MG CAP PO SCH (09:05)
[2022-05-28] MEDS: Nystatin Cream 15 GM TUBE TOP SCH ×2 (09:05→20:23)
[2022-05-28] MEDS: Amlodipine 5 MG TAB PO SCH (09:05)
[2022-05-29 01:06] LABS: Anion Gap 10 mmol/L (10-20); BUN (Urea Nitrogen) 35 mg/dL (9.8-20.1); Calc. Creatinine Clearance 25 mL/min (70-130); Calcium 8.3 mg/dL (7.8-10.44); Carbon Dioxide 20 mmol/L (23-31); Chloride 111 mmol/L (98-107); Estimated GFR 17; Glucose 108 mg/dL (83-110); Potassium 4.2 mmol/L (3.5-5.1); Sodium 137 mmol/L (136-145)
[2022-05-29] MEDS ORDERED: Nitroglycerin 0.4 MG TAB 1 EACH ONE (02:45)
[2022-05-29] MEDS ORDERED: Aspirin Chewable 81 MG TAB ONE (02:45)
[2022-05-29 05:46] LABS: Band 3 % (5-11); Eosinophils 7 % (0-10); Hemoglobin 8.2 g/dL (12.0-16.0); Lymphocytes 30 % (21-51); MDiff Complete? YES; Mean Corpuscular HGB CONC 35.2 g/dL (32.0-36.0); Mean Corpuscular Hemoglobin 29.1 pg (27.0-31.0); Mean Corpuscular Volume 82.6 fl (78.0-98.0); Mean Platelet Volume 6.3 fL (7.4-10.4); Monocytes 5 % (0-10); Neutrophil 55 % (42-75); Platelet Count 189 10x3/uL (130-400); RBC Distribution Width 14.3 % (11.5-14.5); Red Blood Cell (RBC) Count 2.81 mill/uL (4.20-5.40); White Blood Cell (WBC) Count 6.5 10x3/uL (4.8-10.8)
[2022-05-29] MEDS: Saccharomyces boulardii 250 MG CAP PO SCH (08:12)
[2022-05-29] MEDS: Ferrous Sulfate 325 MG TAB PO SCH ×2 (08:12→16:45)
[2022-05-29] MEDS: Amlodipine 5 MG TAB PO SCH (08:12)
[2022-05-29] MEDS: hydrOXYzine 25 MG TAB PO PRN (08:13)
[2022-05-29] MEDS: Nystatin Cream 15 GM TUBE TOP SCH ×2 (08:14→20:51)
[2022-05-30] MEDS: Amlodipine 5 MG TAB PO SCH (08:50)
[2022-05-30] MEDS: Saccharomyces boulardii 250 MG CAP PO SCH (08:50)
[2022-05-30] MEDS: Ferrous Sulfate 325 MG TAB PO SCH ×2 (08:50→17:20)
[2022-05-30] MEDS: Nystatin Cream 15 GM TUBE TOP SCH ×2 (08:51→20:44)
[2022-05-31] MEDS: Nystatin Cream 15 GM TUBE TOP SCH ×2 (08:23→20:55)
[2022-05-31] MEDS: Amlodipine 5 MG TAB PO SCH (08:23)
[2022-05-31] MEDS: Ferrous Sulfate 325 MG TAB PO SCH ×2 (08:23→17:10)
[2022-05-31] MEDS: Saccharomyces boulardii 250 MG CAP PO SCH (08:24)
[2022-05-31] MEDS: Cyclobenzaprine 10 MG TAB PO PRN (08:25)
[2022-06-01] MEDS: Amlodipine 5 MG TAB PO SCH (08:45)
[2022-06-01] MEDS: Ferrous Sulfate 325 MG TAB PO SCH ×2 (08:45→17:25)
[2022-06-01] MEDS: Saccharomyces boulardii 250 MG CAP PO SCH (08:45)
[2022-06-01] MEDS: Nystatin Cream 15 GM TUBE TOP SCH ×2 (08:46→21:23)
[2022-06-02] MEDS: Saccharomyces boulardii 250 MG CAP PO SCH (08:32)
[2022-06-02] MEDS: Ferrous Sulfate 325 MG TAB PO SCH ×2 (08:32→17:43)
[2022-06-02] MEDS: Amlodipine 5 MG TAB PO SCH (08:32)
[2022-06-02] MEDS: Nystatin Cream 15 GM TUBE TOP SCH ×2 (08:33→21:12)
[2022-06-02] MEDS: hydrOXYzine 25 MG TAB PO PRN (21:12)
[2022-06-03 07:31] VITALS: BP 134/68; TEMP 98.6
[2022-06-03] MEDS: Nystatin Cream 15 GM TUBE TOP SCH (08:17)
[2022-06-03] MEDS: Saccharomyces boulardii 250 MG CAP PO SCH (08:17)
[2022-06-03] MEDS: Amlodipine 5 MG TAB PO SCH (08:17)
[2022-06-03] MEDS: Ferrous Sulfate 325 MG TAB PO SCH (08:17)
[2022-06-03 11:06] VITALS: BMI 31.7
== END 2022-06-03 13:00 | disposition home health service (06) | DRG 863 ==
LOC: MADMS 13:35
PROVIDERS: ADMIT Emergency Medicine; ATTEND Family Medicine
PROC: 30233N1 Transfusion of Nonautologous Red Blood Cells into Peripheral Vein, Percutaneous Approach (ICD-10-PCS; principal; 2022-05-23)
DX: T81.49XA Infection following a procedure, other surgical site, initial encounter (principal); N18.4 Chronic kidney disease, stage 4 (severe); N13.6 Pyonephrosis; N17.9 Acute kidney failure, unspecified; Z96.643 Presence of artificial hip joint, bilateral; D63.8 Anemia in other chronic diseases classified elsewhere; Y83.8 Other surgical procedures as the cause of abnormal reaction of the patient, or of later complication, without mention of misadventure at the time of the procedure; I12.9 Hypertensive chronic kidney disease with stage 1 through stage 4 chronic kidney disease, or unspecified chronic kidney disease; N28.1 Cyst of kidney, acquired; Z20.822 Contact with and (suspected) exposure to COVID-19; E66.9 Obesity, unspecified; Z88.8 Allergy status to other drugs, medicaments and biological substances; Z79.82 Long term (current) use of aspirin; Z79.899 Other long term (current) drug therapy; Z98.890 Other specified postprocedural states; Z90.710 Acquired absence of both cervix and uterus; Z90.49 Acquired absence of other specified parts of digestive tract; Z97.8 Presence of other specified devices; Z68.31 Body mass index [BMI] 31.0-31.9, adult
CPT/HCPCS: 36430; 74176; 76770; 80048; 82274; 85025; 85027; 86140; 86850; 86870; 86880; 86900; 86901; 86905; 86922; 87811; J0696; J1956; J3490; J7050; P9016; U0003; U0005